=== PATIENT | female | born 1955 | race African-American/Black ===

== ENCOUNTER 2016-04-11 16:52 | Inpatient (IN) | payer MEDICARE, OTHER ==
[~2016-04-11] VITALS: Ht 162.6 cm; Wt 64.0 kg
[~2016-04-11 16:52] MED LIST: AMLO10TA2 PO; CYCL10TA2 PO; ESCI10TA PO; ESTR1.25 PO; FERR325T72 PO; HYDR-2762 PO; HYDR25TA9 PO; INSU100V13 SQ; METF500T4 PO; METO50TA2 PO; METOPRO; OLAN10TA9 PO; PANT40TA5 PO; SERT50TA8 PO; SIMV10TA3 PO; TRAZ50TA15 PO; glipizide; meloxicam; simvastatin; tizanidine; xanax
[2016-04-11] MEDS ORDERED: IV NORMAL SALINE 1000ML BAG 1,000 ML IV ONE ×2 (18:00→19:45)
[2016-04-11] MEDS ORDERED: ONDANSETRON PF 4 MG/2 ML VIAL. IV ONE (18:00)
[2016-04-11] MEDS: HYDROMORPHONE 2 MG/ML VIAL. IV PRN ×2 (18:09→21:50)
[2016-04-11 18:19] LABS: BASO # 0.1 x10^3/uL (0.0-0.2); BASO % 1 % (0-3); EOS % 0 % (0-3); HEMATOCRIT 38.2 % (36.0-47.0); HEMOGLOBIN 12.1 g/dL (12.0-15.5); LYMPH # 1.6 x10^3/uL (1.0-4.8); LYMPH % 18 % (24-48); MEAN CORPUSCULAR HEMOGLOBIN 28 pg (25-35); MEAN CORPUSCULAR HGB CONC 32 g/dL (31-37); MEAN CORPUSCULAR VOLUME 89 fL (79-100); MONO % 5 % (0-9); NEUT % 75 % (31-73); PLATELET COUNT 469 x10^3/uL (140-400); RED BLOOD COUNT 4.31 x10^6/uL (3.50-5.40); RED CELL DISTRIBUTION WIDTH 16.5 % (11.5-14.5); WHITE BLOOD COUNT 8.9 x10^3/uL (4.0-11.0)
[2016-04-11 19:03] LABS: ALBUMIN 4.6 g/dL (3.4-5.0); CALCIUM 10.7 mg/dL (8.5-10.1); DIRECT BILIRUBIN 0.1 mg/dL (0.0-0.2); GFR 68.4; TOTAL BILIRUBIN 0.7 mg/dL (0.2-1.0); TOTAL PROTEIN 9.2 g/dL (6.4-8.2)
[2016-04-11 19:12] LABS: BILIRUBIN,URINE NEGATIVE (NEG); GLUCOSE,URINE NEGATIVE (NEG); NITRITE,URINE NEGATIVE (NEG); PH,URINE 5.5; UROBILINOGEN,URINE 0.2 mg/dL (0.2 mg/dL)
[2016-04-11] MEDS ORDERED: IOHEXOL 300 MG/ML 75 ML VIAL IV ONE (19:30)
[2016-04-11] MEDS ORDERED: CONTRAST GIVEN MC PRN (19:30)
[2016-04-11 19:34] LABS: INR 1.1 (0.8-1.1); PROTHROMBIN TIME PATIENT 13.8 SEC (11.7-14.0)
[2016-04-11 19:52] LABS: BACTERIA,URINE FEW /HPF (0-FEW); PROTEIN,URINE NEGATIVE (NEG-TRACE); RBC,URINE OCC /HPF (0-2); SQUAMOUS EPITHELIAL CELL,UR FEW /LPF; WBC,URINE OCC /HPF (0-4)
--- NOTE | 2016-04-11 20:49 | RAD ---
PQRS STATEMENT One or more of the following individualized dose reduction techniques were utilized for this study: 1.Automated exposure control. 2.Adjustment of the mA and/orkVaccording to patient size. 3.Use of iterative reconstruction technique. Indication:ABD PAIN WITH VOMITING BLOOD
OMNI 300 75 ML
Reason: abdominal pain with vomiting / Spl. Instructions: / History: Technique: multiple contiguous axial images were obtained through the abdomen and pelvis after intravenous administration of iodinated contrast. Coronal and sagittal reformations were created. Findings: The lung bases are clear. The heart size is normal. The liver is enlarged and demonstrates low attenuation compatible with diffuse fatty infiltration. The gallbladder is surgically absent. The pancreas is unremarkable. The spleen and adrenal glands are within normal limits. The kidneys demonstrate no hydronephrosis or mass. The abdominal aorta is normal in caliber. There is no ascites or adenopathy. The appendix is not identified but there is no pericecal inflammatory mass to suggest acute appendicitis. The bowel loops are normal in caliber. The urinary bladder is within normal limits. No destructive osseous lesion is identified. Impression: - No ascites or inflammatory mass. - Nonvisualization of the appendix. - Hepatomegaly with diffuse fatty infiltration of the liver. Electronically signed by: Aries Song (Apr 11, 2016 20:47:47)
--- NOTE | 2016-04-11 21:01 | PHYS DOC ---
Past Medical History Past Medical History: Diabetes-Type II, Hypertension, Other Additional Past Medical Histor: esophageal varices Past Surgical History: Other Additional Past Surgical Histo: L KNEE; esophageal varices hernando Alcohol Use: Occasionally Drug Use: None Adult General Chief Complaint Chief Complaint: HEMATEMESIS/VOMITING BLOOD HPI HPI 60-year-old female presenting the emergency department today with hematemesis and epigastric abdominal pain her pain is sharp nonradiating intermittent and associated with nausea vomiting and blood in her vomit. She reports having history of varices which have been stapled in the past. Review of systems is negative for chest pain shortness of breath fevers or chills. All other review of systems is negative unless otherwise noted in history of present illness. Review of Systems Review of Systems SEE ABOVE. Current Medications Current Medications Current Medications Medications (Trade) Dose Ordered Sig/Jose Start Time Stop Time Status Last Admin Dose Admin Hydromorphone HCl (Dilaudid) 0.5 mg PRN Q1HR PRN 04/11/16 18:00 04/11/16 18:09 0.5 MG Info (Do NOT chart on this entry -- for MONITORING) 1 each PRN DAILY PRN 04/11/16 19:30 04/13/16 19:29 Iohexol (Omnipaque 300 Mg/ml) 75 ml 1X ONCE 04/11/16 19:30 04/11/16 19:31 DC 04/11/16 19:42 75 ML Morphine Sulfate 2 mg 2 mg PRN Q2HR PRN 04/11/16 19:45 04/12/16 19:44 Ondansetron HCl (Zofran) 4 mg PRN Q8HRS PRN 04/11/16 19:45 04/12/16 19:44 Sodium Chloride (Iv Sodium Chloride 0.9% 1000ml Bag) 1,000 ml @ 1,000 mls/hr 1X ONCE 04/11/16 19:45 04/11/16 20:44 DC Allergies Allergies Allergies Coded Allergies Type Severity Reaction Last Updated Verified No Known Drug Allergies 02/13/13 No Physical Exam Physical Exam Constitutional: Well developed, well nourished, no acute distress, non-toxic appearance. Patient is actively vomiting in the emergency department without blood in the vomitus currently. HENT: Normocephalic, atraumatic, bilateral external ears normal, oropharynx moist, no oral exudates, nose normal. [] Eyes: PERRLA, EOMI, conjunctiva normal, no discharge. Neck: Normal range of motion, no tenderness, supple, no stridor. [] Cardiovascular:Heart rate regular rhythm, no murmur Lungs & Thorax: Bilateral breath sounds clear to auscultation [] Abdomen: Mildly tender abdomen in the epigastrium. Equivocal Lucero sign. Negative McBurney's point. No rebound tenderness or guarding present. Skin: Warm, dry, no erythema, no rash. Back: No tenderness, no CVA tenderness. [] Extremities: No tenderness, no cyanosis, no clubbing, ROM intact, no edema. Neurologic: Alert and oriented X 3, normal motor function, normal sensory function, no focal deficits noted. [] Psychologic: Affect normal, judgement normal, mood normal. [] Current Patient Data Vital Signs Vital Signs Date Time Temp Pulse Resp B/P Pulse Ox O2 Delivery O2 Flow Rate FiO2 04/11/16 18:30 116 139/78 94 Room Air 04/11/16 18:09 22 04/11/16 17:07 98.6 98.6 Lab Values Laboratory Tests Test 04/11/16 17:40 04/11/16 18:36 04/11/16 18:40 04/11/16 18:55 White Blood Count 8.9x10^3/uL (4.0-11.0) Red Blood Count 4.31x10^6/uL (3.50-5.40) Hemoglobin 12.1g/dL (12.0-15.5) Hematocrit 38.2% (36.0-47.0) Mean Corpuscular Volume 89fL (79-100) Mean Corpuscular Hemoglobin 28pg (25-35) Mean Corpuscular Hemoglobin Concent 32g/dL (31-37) Red Cell Distribution Width 16.5% (11.5-14.5) H Platelet Count 469x10^3/uL (140-400) H Neutrophils (%) (Auto) 75% (31-73) H Lymphocytes (%) (Auto) 18% (24-48) L Monocytes (%) (Auto) 5% (0-9) Eosinophils (%) (Auto) 0% (0-3) Basophils (%) (Auto) 1% (0-3) Neutrophils # (Auto) 6.7x10^3uL (1.8-7.7) Lymphocytes # (Auto) 1.6x10^3/uL (1.0-4.8) Monocytes # (Auto) 0.5x10^3/uL (0.0-1.1) Eosinophils # (Auto) 0.0x10^3/uL (0.0-0.7) Basophils # (Auto) 0.1x10^3/uL (0.0-0.2) Sodium Level 138mmol/L (136-145) Potassium Level 4.0mmol/L (3.5-5.1) Chloride Level 94mmol/L (98-107) L Carbon Dioxide Level 12mmol/L (21-32) L Anion Gap 32 (6-14) H Blood Urea Nitrogen 16mg/dL (7-20) Creatinine 1.0mg/dL (0.6-1.0) Estimated GFR (Cockcroft-Gault) 68.4 Glucose Level 126mg/dL (70-99) H Calcium Level 10.7mg/dL (8.5-10.1) H Total Bilirubin 0.7mg/dL (0.2-1.0) Direct Bilirubin 0.1mg/dL (0.0-0.2) Aspartate Amino Transferase (AST) 89U/L (15-37) H Alanine Aminotransferase (ALT) 78U/L (14-59) H Alkaline Phosphatase 138U/L (46-116) H Troponin I Quantitative < 0.017ng/mL (0.000-0.055) TI-Pon-Z-Type Natriuretic Peptide 38pg/mL (0-124) Total Protein 9.2g/dL (6.4-8.2) H Albumin 4.6g/dL (3.4-5.0) Lipase 228U/L (73-393) Prothrombin Time 13.8SEC (11.7-14.0) Prothrombin Time INR 1.1 (0.8-1.1) PTT 26SEC (24-38) Lactic Acid Level 4.6mmol/L (0.4-2.0) *H Urine Collection Type Unknown Urine Color Yellow Urine Clarity Clear Urine pH 5.5 Urine Specific [place] 1.015 Urine Protein Negativemg/dL (NEG-TRACE) Urine Glucose (UA) Negativemg/dL (NEG) Urine Ketones (Stick) >=80mg/dL (NEG) Urine Blood Small (NEG) Urine Nitrite Negative (NEG) Urine Bilirubin Negative (NEG) Urine Urobilinogen Dipstick 0.2mg/dL (0.2 mg/dL) Urine Leukocyte Esterase Negative (NEG) Urine RBC Occ/HPF (0-2) Urine WBC Occ/HPF (0-4) Urine Squamous Epithelial Cells Few/LPF Urine Bacteria Few/HPF (0-FEW) Urine Mucus Slight/LPF Laboratory Tests 04/11/16 17:40 Laboratory Tests 04/11/16 17:40 EKG EKG [] EKG shows sinus tachycardia with a leftward axis. ST segments congruent. Not consistent with ACS. Radiology/Procedures Radiology/Procedures [] Chest x-ray shows no acute obvious infiltrate or pneumothorax present. Course & Med Decision Making Course & Med Decision Making Pertinent Labs and Imaging studies reviewed. (See chart for details) [] 60-year-old female with a history of esophageal varices presents emergency department today with nausea vomiting and hematemesis. On evaluation the patient had tachycardia afebrile satting well with mild hypertension. IV line established along with IV fluids pain and nausea medications administered. Type and screen obtained. Blood work sent which showed normal CBC. Hemoglobin 12.1 currently. Coagulation within normal limits. Urinalysis not suggestive of infection. Mild ketosis in urine. Chemistry panel showed anion gap acidosis from lactic acidosis which was significantly elevated at 4.6. Troponin negative. Lipase within the reference range of normal. CT the abdomen and pelvis was obtained which showed no acute pathology. I discussed the case with Dr. Blunt at 2004 given the patient's lactic acidosis and hematemesis considering the diagnosis of mesenteric ischemia. Also I placed a consult into our GI doctors given the patient's history of esophageal varices. The patient was then admitted to our hospital for further evaluation workup and care. Repeat lactic acid ordered. Because the patient's active hematemesis with a history of varices in the context of a strong lactic acidosis the patient was transfused 1 unit of blood. Dragon Disclaimer Dragon Disclaimer This electronic medical record was generated, in whole or in part, using a voice recognition dictation system. Departure Departure Impression: Primary Impression: Hematemesis Additional Impressions: Lactic acidosis Tachycardia Hypovolemia Disposition: ADMITTED INPATIENT Admitting Physician: Charbel Doran Condition: STABLE Referrals: UNKNOWN PCP NAME (PCP) Problem Qualifiers TANK ESTEVEZ MD Apr 11, 2016 21:01
[2016-04-11] MEDS ORDERED: CEFTRIAXONE 1GM IVPB FOR OMNI 50 ML IV ONE (21:30)
[2016-04-11] MEDS ORDERED: PANTOPRAZOLE SODIUM IV 80 MG in IV NORMAL SALINE 100ML 100 ML IV ONE (22:00)
[2016-04-12] VITALS (20 sets, daily range): BP systolic 109–149; BP diastolic 55–87
--- NOTE | 2016-04-12 00:12 | HP ---
ADMIT DATE: 04/12/2016 CHIEF COMPLAINT: Abdominal pain and hematemesis. HISTORY OF PRESENT ILLNESS: The patient is a pleasant 60-year-old female who I believe has liver issues from drinking. She states she had an EGD in the recent past and had to clear up some esophageal varices. Once again, she presents with hematemesis. She has associated pain in her abdomen. Her lactic acid level is high. I discussed the case with the ER physician. We are going to admit the patient and consult GI and General Surgery. PAST MEDICAL HISTORY: Probable esophageal varices, diabetes, hypertension, left knee surgery, alcohol issues. ALLERGIES: None. FAMILY HISTORY: Hypertension. SOCIAL HISTORY: She states she is trying to quit drinking the vodka. MEDICATIONS: Reviewed, please refer to the MRAD. REVIEW OF SYSTEMS: GENERAL: No history of weight change, weakness or fevers. SKIN: No bruising, hair changes or rashes. EYES: No blurred, double or loss of vision. NOSE AND THROAT: No history of nosebleeds, hoarseness or sore throat. HEART: No history of palpitations, chest pain or shortness of breath on exertion. LUNGS: Denies cough, hemoptysis, wheezing or shortness of breath. GASTROINTESTINAL: She complains of abdominal pain and hematemesis. GENITOURINARY: No history of frequency, urgency, hesitancy or nocturia. NEUROLOGIC: Denies history of numbness, tingling, tremor or weakness. PSYCHIATRIC: No history of panic, anxiety or depression. ENDOCRINE: No history of heat or cold intolerance, polyuria or polydipsia. EXTREMITIES: Denies muscle weakness, joint pain, pain on walking or stiffness. PHYSICAL EXAMINATION: VITAL SIGNS: Temperature afebrile, pulse 78, respirations 18, blood pressure 141/82. She had a pulse to 100. GENERAL: She is alert, cooperative, anxious. HEART: Normal S1, S2, tachycardic at times. LUNGS: Clear. ABDOMEN: Soft. Decreased bowel sounds, tender in the epigastrium. EXTREMITIES: No edema. SKIN: No rashes. PSYCHIATRIC: She is anxious. VASCULAR: Good capillary refill. ENDOCRINE: No thyromegaly. LYMPHATICS: No cervical nodes. HEMATOPOIETIC: No bruising. LABORATORY DATA: White count 8, hemoglobin 12, platelets 469. Electrolytes: Sodium 138, potassium 4, chloride 94, bicarbonate 12, BUN 16, creatinine 1, glucose 126, lactic acid 4.6. Troponin 0. Liver function tests were elevated with an AST of 89, ALT of 78, alkaline phosphatase 130. ASSESSMENT AND PLAN: Abdominal pain, hematemesis, suspect possible recurrent esophageal varices. The patient is being admitted, we will consult Dr. Keith and General Surgery. IV proton pump inhibitors. Frequent labs. PROGNOSIS: Guarded. CHRISTA TORRES DO DR: RUBIO/isaura JOB#: [id number] / [id number]
[2016-04-12] MEDS: IV NORMAL SALINE 1000ML BAG 1,000 ML IV SCH ×2 (01:19→14:20)
[2016-04-12] MEDS: HYDROMORPHONE 2 MG/ML VIAL. IV PRN (01:20)
[2016-04-12] MEDS: ONDANSETRON PF 4 MG/2 ML VIAL. IV PRN ×2 (01:20→10:17)
[2016-04-12] MEDS: MORPHINE SULFATE 2 MG/ML DISP.SYRIN. IV PRN ×4 (05:04→18:17)
[2016-04-12 05:13] LABS: BASO % 1 % (0-3); EOS % 0 % (0-3); HEMATOCRIT 29.5 % (36.0-47.0); HEMOGLOBIN 9.6 g/dL (12.0-15.5); LYMPH # 1.5 x10^3/uL (1.0-4.8); LYMPH % 20 % (24-48); MEAN CORPUSCULAR HEMOGLOBIN 28 pg (25-35); MEAN CORPUSCULAR HGB CONC 32 g/dL (31-37); MEAN CORPUSCULAR VOLUME 88 fL (79-100); MONO % 12 % (0-9); NEUT % 68 % (31-73); PLATELET COUNT 360 x10^3/uL (140-400); RED BLOOD COUNT 3.37 x10^6/uL (3.50-5.40); RED CELL DISTRIBUTION WIDTH 16.2 % (11.5-14.5); WHITE BLOOD COUNT 7.9 x10^3/uL (4.0-11.0)
[2016-04-12 05:38] LABS: CREATININE 0.9 mg/dL (0.6-1.0); GFR 77.3; POTASSIUM 3.8 mmol/L (3.5-5.1)
--- NOTE | 2016-04-12 06:38 | EKG ---
[facility] [address] [place] [address] Test Date: 2016-04-11 Test Time: 17:15:55 Pat Name: KRISTINE MEJIA Department: Room: 103 1 Gender: F Check Grader: BI : [id number] Requested By: TANK ESTEVEZ Order Number: [id number] Reading MD: Kandace Bloom Measurements Intervals [place] Rate: 114 P: -96 SD: 96 QRS: -2 QRSD: 84 T: 52 QT: 282 QTc: 392 Interpretive Statements SINUS TACHYCARDIA LEFTWARD AXIS OTHERWISE NORMAL ECG RI6.01 No previous ECG available for comparison Electronically Signed On 04-17-2016 14:25:32 [employer] by Kandace Bloom
[2016-04-12] MEDS: PANTOPRAZOLE SODIUM IV 80 MG in IV NORMAL SALINE 100ML 100 ML IV SCH ×2 (08:02→18:00)
--- NOTE | 2016-04-12 08:35 | RAD ---
Indication epigastric abdominal pain with hematemesis for 2 days. History of esophageal varices. A single AP view of the chest was obtained. Comparison is made to an examination 02/27/2016. Slightly tortuous thoracic aorta is noted. The heart and pulmonary vessels are normal. The lungs are clear. There is no pleural fluid or pneumothorax. A significant change when compared to the previous exam is not seen. IMPRESSION: No acute or focal process. No significant change
--- NOTE | 2016-04-12 09:08 | PDOC2 ---
CONSULT Date of Consult Date of Consult DATE: 04/12/16 TIME: 09:02 History of Present Illness Reason for Visit: The patient is a 60 year old female who reported to the ER with abdominal pain and vomiting of blood. She was admitted in 02/2017 due to chest pain and anemia , and found to have a tori pal tear which was clipped. She states that the pain has been there for some time, but worsened over the last 3 days. The pain is most prominent in the upper mid abdomen and does not radiate. She has also been vomiting blood for the last 3 days. She admits to a long history of alcohol use. She states she "has cut down", but has continued to drink and had a significant amount during the SuperBowl. Past Medical History Past Medical History diabetes, hypertension, tori pal tear Past Surgical History Past Surgical History lap mario Social History Social History on disability, denies tobacco use, significant alcohol use Current Problem List Problem List Problems Medical Problems: (1) Hematemesis Status: Acute (2) Hypovolemia Status: Acute (3) Lactic acidosis Status: Acute (4) Tachycardia Status: Acute Current Medications Current Medications Current Medications Hydromorphone HCl (Dilaudid) 0.5 mg PRN Q1HR PRN IV SEVERE PAIN Last administered on 04/12/16 01:20; Start 04/11/16 at 18:00; Stop 04/12/16 at 01:20; Status DC Ondansetron HCl 4 mg 4 mg 1X ONCE IV Last administered on 04/11/16 18:08; Start 04/11/16 at 18:00; Stop 04/11/16 at 18:01; Status DC Sodium Chloride (Iv Sodium Chloride 0.9% 1000ml Bag) 1,000 ml @ 1,000 mls/hr 1X ONCE IV Last administered on 04/11/16 18:09; Start 04/11/16 at 18:00; Stop 04/11/16 at 18:59; Status DC Iohexol (Omnipaque 300 Mg/ml) 75 ml 1X ONCE IV Last administered on 04/11/16 19:42; Start 04/11/16 at 19:30; Stop 04/11/16 at 19:31; Status DC Info (Do NOT chart on this entry -- for MONITORING) 1 each PRN DAILY PRN MC SEE COMMENTS; Start 04/11/16 at 19:30; Stop 04/13/16 at 19:29 Ondansetron HCl (Zofran) 4 mg PRN Q8HRS PRN IV NAUSEA/VOMITING Last administered on 04/12/16 01:20; Start 04/11/16 at 19:45; Stop 04/12/16 at 19:44 Morphine Sulfate 2 mg 2 mg PRN Q2HR PRN IV PAIN Last administered on 04/12/16 08:09; Start 04/11/16 at 19:45; Stop 04/12/16 at 19:44 Sodium Chloride 1,000 ml @ 1,000 mls/hr 1X ONCE IV Last administered on 20:10; Start 04/11/16 at 19:45; Stop 04/11/16 at 20:44; Status DC Ceftriaxone Sodium 50 ml @ 100 mls/hr 1X ONCE IV Last administered on 22:19; Start 04/11/16 at 21:30; Stop 04/11/16 at 21:59; Status DC Pantoprazole Sodium 80 mg/ Sodium Chloride 100 ml @ 10 mls/hr 1X ONCE IV Last administered on 04/11/16 22:46; Start 04/11/16 at 22:00; Stop 04/12/16 at 07: 59; Status DC Sodium Chloride 1,000 ml @ 75 mls/hr [id number] IV Last administered on 04/12/16 01:19; Start 04/12/16 at 01:00 Pantoprazole Sodium/Sodium Chloride (Protonix Iv/Iv Sodium Chloride 0.9% 100ml) 100 ml @ 10 mls/hr Q10H IV Last administered on 04/12/16 08:02; Start 04/12/16 at 08:00 Active Scripts Active Pantoprazole Sodium 40 Mg Tablet.dr 40 Mg PO DAILYAC Feosol (Ferrous Sulfate) 325 Mg Tablet 325 Mg PO [id number] Escitalopram Oxalate 10 Mg Tablet 1 Tab PO DAILY Metoprolol Tartrate 50 Mg Tablet 1 Tab PO DAILY Sertraline Hcl 50 Mg Tablet 50 Mg PO DAILY Reported Trazodone Hcl 50 Mg Tablet 1 Tab PO QHS Levemir (Insulin Detemir) 100 Unit/1 Ml Vial 17 Unit SQ HS Olanzapine 10 Mg Tablet 10 Mg PO DAILY Metformin Hcl 500 Mg Tablet 1 Tab PO BID Simvastatin 10 Mg Tablet 1 Tab PO QHS Cyclobenzaprine Hcl 10 Mg Tablet 1 Tab PO QHS Hydrocodone-Apap 7.5-325 (Hydrocodone Bit/Acetaminophen) 1 Each Tablet 1 Each PO QID Premarin (Estrogens, Conjugated) 1.25 Mg Tablet 1.25 Mg PO DAILY Allergies Allergies: Coded Allergies: No Known Drug Allergies (Unverified , 02/13/13) ROS General: No: Appetite, Chills, Fatigue, Malaise, Night Sweats, Other PSYCHOLOGICAL ROS: No: Anxiety, Behavioral Disorder, Concentration difficultie , Decreased libido, Depression, Disorientation, Hallucinations, Hostility, Irritablity, Memory difficulties, Mood Swings, Obsessive thoughts, Other, Physical abuse, Sexual abuse, Sleep disturbances, Suicidal ideation Eyes: No Blurry vision, No Decreased vision, No Double vision, No Dry eyes, No Excessive tearing, No Eye Pain, No Itchy Eyes, No Loss of vision, No Other, No Photophobia, No Scotomata, No Uses contacts, No Uses glasses HEENT: No: Epistaxis, Heacaches, Hearing change, Nasal congestion, Nasal discharge, Oral lesions, Other, Sinus pain, Sneezing, Snoring, Sore Throat, Tinnitus, Vertigo, Visual Changes, Vocal changes ALLERGY AND IMMUNOLOGY: No: Hives, Insect Bite Sensitivity, Itchy/Watery Eyes, Nasal Congestion, Other, Post Nasal Drip, Seasonal Allergies Hematological and Lymphatic: No: Bleeding Problems, Blood Clots, Blood Transfusions, Brusing, Night Sweats, Other, Pallor, Swollen Lymph Nodes ENDOCRINE: No: Breast Changes, Galactorrhea, Hair Pattern Changes, Hot Flashes , Malaise/lethargy, Mood Swings, Other, Palpitations, Polydipsia/polyuria, Skin Changes, Temperature Intolerance, Unexpected Weight Changes Respiratory: No: Cough, Hemoptysis, Orthopnea, Other, Pleuritic Pain, SOB with excertion, Shortness of breath, Sputum Changes, Stridor, Tachypnea, Wheezing Cardiovascular: No Chest Pain, No Edema, No Lt Headedness, No Orthopnea, No Other, No Palpitations, No Paroxysmal Noc. Dyspnea Gastrointestinal: Yes Abdominal Pain, Yes Vomiting Genitourinary: No , No , No , No , No , No , No , No Discharge, No Dysuria, No Flank Pain, No Frequency, No Hematuria, No Incontinence, No Other, No Pain, No Retention, No Urgency Musculoskeletal: No Gait Disturbance, No Joint Pain, No Joint Stiffness, No Joint Swelling, No Muscle Pain, No Muscular Weakness, No Other, No Pain In:, No Swelling In: Neurological: No Behavorial Changes, No Bowel/Bladder ControlChng, No Confusion , No Dizziness, No Gait Disturbance, No Headaches, No Impaired Coord/balance, No Memory Loss, No Numbness/Tingling, No Other, No Seizures, No Speech Problems , No Tremors, No Visual Changes, No Weakness Physical Exam General: Alert, Oriented X3 HEENT: Atraumatic Lungs: Clear to auscultation Heart: Regular rate Abdomen: Soft (tender with palpation in upper mid abdomen) Extremities: No clubbing, No cyanosis, No edema Skin: No rashes, No breakdown Neuro: Normal speech Psych/Mental Status: Mental status NL MUSCULOSKELETAL: No deformity, No swelling Vitals VITALS Vital Signs Date Time Temp Pulse Resp B/P Pulse Ox O2 Delivery O2 Flow Rate FiO2 04/12/16 08:09 98 Room Air 04/12/16 08:02 98.3 96 24 138/82 98.3 Labs Labs Laboratory Tests Test 04/11/16 17:40 04/11/16 18:36 04/11/16 18:40 04/11/16 18:55 White Blood Count 8.9x10^3/uL (4.0-11.0) Red Blood Count 4.31x10^6/uL (3.50-5.40) Hemoglobin 12.1g/dL (12.0-15.5) Hematocrit 38.2% (36.0-47.0) Mean Corpuscular Volume 89fL (79-100) Mean Corpuscular Hemoglobin 28pg (25-35) Mean Corpuscular Hemoglobin Concent 32g/dL (31-37) Red Cell Distribution Width 16.5% (11.5-14.5) Platelet Count 469x10^3/uL (140-400) Neutrophils (%) (Auto) 75% (31-73) Lymphocytes (%) (Auto) 18% (24-48) Monocytes (%) (Auto) 5% (0-9) Eosinophils (%) (Auto) 0% (0-3) Basophils (%) (Auto) 1% (0-3) Neutrophils # (Auto) 6.7x10^3uL (1.8-7.7) Lymphocytes # (Auto) 1.6x10^3/uL (1.0-4.8) Monocytes # (Auto) 0.5x10^3/uL (0.0-1.1) Eosinophils # (Auto) 0.0x10^3/uL (0.0-0.7) Basophils # (Auto) 0.1x10^3/uL (0.0-0.2) Sodium Level 138mmol/L (136-145) Potassium Level 4.0mmol/L (3.5-5.1) Chloride Level 94mmol/L (98-107) Carbon Dioxide Level 12mmol/L (21-32) Anion Gap 32 (6-14) Blood Urea Nitrogen 16mg/dL (7-20) Creatinine 1.0mg/dL (0.6-1.0) Estimated GFR (Cockcroft-Gault) 68.4 Glucose Level 126mg/dL (70-99) Calcium Level 10.7mg/dL (8.5-10.1) Total Bilirubin 0.7mg/dL (0.2-1.0) Direct Bilirubin 0.1mg/dL (0.0-0.2) Aspartate Amino Transf (AST/SGOT) 89U/L (15-37) Alanine Aminotransferase (ALT/SGPT) 78U/L (14-59) Alkaline Phosphatase 138U/L (46-116) Troponin I Quantitative < 0.017ng/mL (0.000-0.055) QL-Nxp-A-Type Natriuretic Peptide 38pg/mL (0-124) Total Protein 9.2g/dL (6.4-8.2) Albumin 4.6g/dL (3.4-5.0) Lipase 228U/L (73-393) Prothrombin Time 13.8SEC (11.7-14.0) Prothromb Time International Ratio 1.1 (0.8-1.1) Activated Partial Thromboplast Time 26SEC (24-38) Lactic Acid Level 4.6mmol/L (0.4-2.0) Urine Collection Type Unknown Urine Color Yellow Urine Clarity Clear Urine pH 5.5 Urine Specific [place] 1.015 Urine Protein Negativemg/dL (NEG-TRACE) Urine Glucose (UA) Negativemg/dL (NEG) Urine Ketones (Stick) >=80mg/dL (NEG) Urine Blood Small (NEG) Urine Nitrite Negative (NEG) Urine Bilirubin Negative (NEG) Urine Urobilinogen Dipstick 0.2mg/dL (0.2 mg/dL) Urine Leukocyte Esterase Negative (NEG) Urine RBC Occ/HPF (0-2) Urine WBC Occ/HPF (0-4) Urine Squamous Epithelial Cells Few/LPF Urine Bacteria Few/HPF (0-FEW) Urine Mucus Slight/LPF Test 04/11/16 22:05 04/12/16 04:27 04/12/16 08:01 Lactic Acid Level 1.9mmol/L (0.4-2.0) White Blood Count 7.9x10^3/uL (4.0-11.0) Red Blood Count 3.37x10^6/uL (3.50-5.40) Hemoglobin 9.6g/dL (12.0-15.5) Hematocrit 29.5% (36.0-47.0) Mean Corpuscular Volume 88fL (79-100) Mean Corpuscular Hemoglobin 28pg (25-35) Mean Corpuscular Hemoglobin Concent 32g/dL (31-37) Red Cell Distribution Width 16.2% (11.5-14.5) Platelet Count 360x10^3/uL (140-400) Neutrophils (%) (Auto) 68% (31-73) Lymphocytes (%) (Auto) 20% (24-48) Monocytes (%) (Auto) 12% (0-9) Eosinophils (%) (Auto) 0% (0-3) Basophils (%) (Auto) 1% (0-3) Neutrophils # (Auto) 5.3x10^3uL (1.8-7.7) Lymphocytes # (Auto) 1.5x10^3/uL (1.0-4.8) Monocytes # (Auto) 1.0x10^3/uL (0.0-1.1) Eosinophils # (Auto) 0.0x10^3/uL (0.0-0.7) Basophils # (Auto) 0.0x10^3/uL (0.0-0.2) Sodium Level 135mmol/L (136-145) Potassium Level 3.8mmol/L (3.5-5.1) Chloride Level 99mmol/L (98-107) Carbon Dioxide Level 22mmol/L (21-32) Anion Gap 14 (6-14) Blood Urea Nitrogen 11mg/dL (7-20) Creatinine 0.9mg/dL (0.6-1.0) Estimated GFR (Cockcroft-Gault) 77.3 Glucose Level 141mg/dL (70-99) Calcium Level 9.0mg/dL (8.5-10.1) Glucose (Fingerstick) 109mg/dL (70-99) Laboratory Tests Test 04/11/16 17:40 04/11/16 18:36 04/11/16 18:40 04/11/16 18:55 White Blood Count 8.9x10^3/uL (4.0-11.0) Red Blood Count 4.31x10^6/uL (3.50-5.40) Hemoglobin 12.1g/dL (12.0-15.5) Hematocrit 38.2% (36.0-47.0) Mean Corpuscular Volume 89fL (79-100) Mean Corpuscular Hemoglobin 28pg (25-35) Mean Corpuscular Hemoglobin Concent 32g/dL (31-37) Red Cell Distribution Width 16.5% (11.5-14.5) Platelet Count 469x10^3/uL (140-400) Neutrophils (%) (Auto) 75% (31-73) Lymphocytes (%) (Auto) 18% (24-48) Monocytes (%) (Auto) 5% (0-9) Eosinophils (%) (Auto) 0% (0-3) Basophils (%) (Auto) 1% (0-3) Neutrophils # (Auto) 6.7x10^3uL (1.8-7.7) Lymphocytes # (Auto) 1.6x10^3/uL (1.0-4.8) Monocytes # (Auto) 0.5x10^3/uL (0.0-1.1) Eosinophils # (Auto) 0.0x10^3/uL (0.0-0.7) Basophils # (Auto) 0.1x10^3/uL (0.0-0.2) Sodium Level 138mmol/L (136-145) Potassium Level 4.0mmol/L (3.5-5.1) Chloride Level 94mmol/L (98-107) Carbon Dioxide Level 12mmol/L (21-32) Anion Gap 32 (6-14) Blood Urea Nitrogen 16mg/dL (7-20) Creatinine 1.0mg/dL (0.6-1.0) Estimated GFR (Cockcroft-Gault) 68.4 Glucose Level 126mg/dL (70-99) Calcium Level 10.7mg/dL (8.5-10.1) Total Bilirubin 0.7mg/dL (0.2-1.0) Direct Bilirubin 0.1mg/dL (0.0-0.2) Aspartate Amino Transf (AST/SGOT) 89U/L (15-37) Alanine Aminotransferase (ALT/SGPT) 78U/L (14-59) Alkaline Phosphatase 138U/L (46-116) Troponin I Quantitative < 0.017ng/mL (0.000-0.055) CA-Ewo-I-Type Natriuretic Peptide 38pg/mL (0-124) Total Protein 9.2g/dL (6.4-8.2) Albumin 4.6g/dL (3.4-5.0) Lipase 228U/L (73-393) Prothrombin Time 13.8SEC (11.7-14.0) Prothromb Time International Ratio 1.1 (0.8-1.1) Activated Partial Thromboplast Time 26SEC (24-38) Lactic Acid Level 4.6mmol/L (0.4-2.0) Urine Collection Type Unknown Urine Color Yellow Urine Clarity Clear Urine pH 5.5 Urine Specific [place] 1.015 Urine Protein Negativemg/dL (NEG-TRACE) Urine Glucose (UA) Negativemg/dL (NEG) Urine Ketones (Stick) >=80mg/dL (NEG) Urine Blood Small (NEG) Urine Nitrite Negative (NEG) Urine Bilirubin Negative (NEG) Urine Urobilinogen Dipstick 0.2mg/dL (0.2 mg/dL) Urine Leukocyte Esterase Negative (NEG) Urine RBC Occ/HPF (0-2) Urine WBC Occ/HPF (0-4) Urine Squamous Epithelial Cells Few/LPF Urine Bacteria Few/HPF (0-FEW) Urine Mucus Slight/LPF Test 04/11/16 22:05 04/12/16 04:27 04/12/16 08:01 Lactic Acid Level 1.9mmol/L (0.4-2.0) White Blood Count 7.9x10^3/uL (4.0-11.0) Red Blood Count 3.37x10^6/uL (3.50-5.40) Hemoglobin 9.6g/dL (12.0-15.5) Hematocrit 29.5% (36.0-47.0) Mean Corpuscular Volume 88fL (79-100) Mean Corpuscular Hemoglobin 28pg (25-35) Mean Corpuscular Hemoglobin Concent 32g/dL (31-37) Red Cell Distribution Width 16.2% (11.5-14.5) Platelet Count 360x10^3/uL (140-400) Neutrophils (%) (Auto) 68% (31-73) Lymphocytes (%) (Auto) 20% (24-48) Monocytes (%) (Auto) 12% (0-9) Eosinophils (%) (Auto) 0% (0-3) Basophils (%) (Auto) 1% (0-3) Neutrophils # (Auto) 5.3x10^3uL (1.8-7.7) Lymphocytes # (Auto) 1.5x10^3/uL (1.0-4.8) Monocytes # (Auto) 1.0x10^3/uL (0.0-1.1) Eosinophils # (Auto) 0.0x10^3/uL (0.0-0.7) Basophils # (Auto) 0.0x10^3/uL (0.0-0.2) Sodium Level 135mmol/L (136-145) Potassium Level 3.8mmol/L (3.5-5.1) Chloride Level 99mmol/L (98-107) Carbon Dioxide Level 22mmol/L (21-32) Anion Gap 14 (6-14) Blood Urea Nitrogen 11mg/dL (7-20) Creatinine 0.9mg/dL (0.6-1.0) Estimated GFR (Cockcroft-Gault) 77.3 Glucose Level 141mg/dL (70-99) Calcium Level 9.0mg/dL (8.5-10.1) Glucose (Fingerstick) 109mg/dL (70-99) Images Images CT abdomen/pelvis: negative for acute abnormality, gallbladder absent Assessment/Plan Assessment/Plan Abdominal pain, hematemesis, recent history of tori pal tear. Suspect ongoing bleeding; recommend GI consult; no indication for surgical intervention. ANA WILL MD Apr 12, 2016 09:08
--- NOTE | 2016-04-12 09:13 | PDOC2 ---
GI CONSULT Reason For Consult: Hematemesis HPI: HPI: 60 y/o AA female previously evaluated by Dr. Keith in 02/2016 for melena and anemia. EGD on 02/27/16 showed Janett-Oro tear that was clipped. Note her chart lists h/o esophageal varices which I don't believe is correct. Additional h/o alcohol abuse; she has cut back to consuming 1/2 pint or a few beers every third day. On this occasion, she says she developed an "upset stomach" on 04/10/16 and began vomiting blood. Later that night, she drank during the Super Bowl. Hematemesis (bright red blood) continue yesterday prompting ER evaluation. She has diffuse soreness in her abdomen and also has not been eating very well. Denies melena or hematochezia. Note on last discharge it was recommended she follow-up for outpatient colonoscopy for anemia (Hgb 7s-8s mostly); her last colonoscopy was ~4 years ago @ [facility] and was reportedly normal. No NSAID use, GERD, or dysphagia. Labs showed Hgb 12/ (now 9.6), normal plt count, normal INR< normal bilirubin, AST 89, ALT 78, Alk Phos 138, lactic acid 4.6 (now 1.9). She is NPO on PPI drip ; per RN notes, she spit up overnight w/ a tinge of red blood. PMH: PMH: DM, HTN, HLD, left knee surgery, left shoulder surgery, jaw surgery, cholecystectomy FH: Family History: Cancer (breast) Social History: Smoke: No ALCOHOL: heavy (has cut back to 1/2 pint or a a few beers every third day) Drugs: None ROS: GEN: Denies fevers, chills, sweats HEENT: Denies blurred vision, sore throat CV: Denies chest pain RESP: Denies shortness of air, cough GI: Per HPI : Denies hematuria, dysuria ENDO: Denies weight changes NEURO: Denies confusion, dizziness MSK: +left breast pain SKIN: Denies jaundice, pruritus VItals: Vitals: Vital Signs Date Time Temp Pulse Resp B/P Pulse Ox O2 Delivery O2 Flow Rate FiO2 04/12/16 08:09 98 Room Air 04/12/16 08:02 98.3 96 24 138/82 98.3 Labs: Labs: Laboratory Tests Test 04/11/16 17:40 04/11/16 18:36 04/11/16 18:40 04/11/16 18:55 White Blood Count 8.9x10^3/uL (4.0-11.0) Red Blood Count 4.31x10^6/uL (3.50-5.40) Hemoglobin 12.1g/dL (12.0-15.5) Hematocrit 38.2% (36.0-47.0) Mean Corpuscular Volume 89fL (79-100) Mean Corpuscular Hemoglobin 28pg (25-35) Mean Corpuscular Hemoglobin Concent 32g/dL (31-37) Red Cell Distribution Width 16.5% (11.5-14.5) Platelet Count 469x10^3/uL (140-400) Neutrophils (%) (Auto) 75% (31-73) Lymphocytes (%) (Auto) 18% (24-48) Monocytes (%) (Auto) 5% (0-9) Eosinophils (%) (Auto) 0% (0-3) Basophils (%) (Auto) 1% (0-3) Neutrophils # (Auto) 6.7x10^3uL (1.8-7.7) Lymphocytes # (Auto) 1.6x10^3/uL (1.0-4.8) Monocytes # (Auto) 0.5x10^3/uL (0.0-1.1) Eosinophils # (Auto) 0.0x10^3/uL (0.0-0.7) Basophils # (Auto) 0.1x10^3/uL (0.0-0.2) Sodium Level 138mmol/L (136-145) Potassium Level 4.0mmol/L (3.5-5.1) Chloride Level 94mmol/L (98-107) Carbon Dioxide Level 12mmol/L (21-32) Anion Gap 32 (6-14) Blood Urea Nitrogen 16mg/dL (7-20) Creatinine 1.0mg/dL (0.6-1.0) Estimated GFR (Cockcroft-Gault) 68.4 Glucose Level 126mg/dL (70-99) Calcium Level 10.7mg/dL (8.5-10.1) Total Bilirubin 0.7mg/dL (0.2-1.0) Direct Bilirubin 0.1mg/dL (0.0-0.2) Aspartate Amino Transf (AST/SGOT) 89U/L (15-37) Alanine Aminotransferase (ALT/SGPT) 78U/L (14-59) Alkaline Phosphatase 138U/L (46-116) Troponin I Quantitative < 0.017ng/mL (0.000-0.055) QV-Ryf-F-Type Natriuretic Peptide 38pg/mL (0-124) Total Protein 9.2g/dL (6.4-8.2) Albumin 4.6g/dL (3.4-5.0) Lipase 228U/L (73-393) Prothrombin Time 13.8SEC (11.7-14.0) Prothromb Time International Ratio 1.1 (0.8-1.1) Activated Partial Thromboplast Time 26SEC (24-38) Lactic Acid Level 4.6mmol/L (0.4-2.0) Urine Collection Type Unknown Urine Color Yellow Urine Clarity Clear Urine pH 5.5 Urine Specific [place] 1.015 Urine Protein Negativemg/dL (NEG-TRACE) Urine Glucose (UA) Negativemg/dL (NEG) Urine Ketones (Stick) >=80mg/dL (NEG) Urine Blood Small (NEG) Urine Nitrite Negative (NEG) Urine Bilirubin Negative (NEG) Urine Urobilinogen Dipstick 0.2mg/dL (0.2 mg/dL) Urine Leukocyte Esterase Negative (NEG) Urine RBC Occ/HPF (0-2) Urine WBC Occ/HPF (0-4) Urine Squamous Epithelial Cells Few/LPF Urine Bacteria Few/HPF (0-FEW) Urine Mucus Slight/LPF Test 04/11/16 22:05 04/12/16 04:27 04/12/16 08:01 Lactic Acid Level 1.9mmol/L (0.4-2.0) White Blood Count 7.9x10^3/uL (4.0-11.0) Red Blood Count 3.37x10^6/uL (3.50-5.40) Hemoglobin 9.6g/dL (12.0-15.5) Hematocrit 29.5% (36.0-47.0) Mean Corpuscular Volume 88fL (79-100) Mean Corpuscular Hemoglobin 28pg (25-35) Mean Corpuscular Hemoglobin Concent 32g/dL (31-37) Red Cell Distribution Width 16.2% (11.5-14.5) Platelet Count 360x10^3/uL (140-400) Neutrophils (%) (Auto) 68% (31-73) Lymphocytes (%) (Auto) 20% (24-48) Monocytes (%) (Auto) 12% (0-9) Eosinophils (%) (Auto) 0% (0-3) Basophils (%) (Auto) 1% (0-3) Neutrophils # (Auto) 5.3x10^3uL (1.8-7.7) Lymphocytes # (Auto) 1.5x10^3/uL (1.0-4.8) Monocytes # (Auto) 1.0x10^3/uL (0.0-1.1) Eosinophils # (Auto) 0.0x10^3/uL (0.0-0.7) Basophils # (Auto) 0.0x10^3/uL (0.0-0.2) Sodium Level 135mmol/L (136-145) Potassium Level 3.8mmol/L (3.5-5.1) Chloride Level 99mmol/L (98-107) Carbon Dioxide Level 22mmol/L (21-32) Anion Gap 14 (6-14) Blood Urea Nitrogen 11mg/dL (7-20) Creatinine 0.9mg/dL (0.6-1.0) Estimated GFR (Cockcroft-Gault) 77.3 Glucose Level 141mg/dL (70-99) Calcium Level 9.0mg/dL (8.5-10.1) Glucose (Fingerstick) 109mg/dL (70-99) Allergies: Coded Allergies: No Known Drug Allergies (Unverified , 02/13/13) Medications: Current Medications Medications (Trade) Dose Ordered Sig/Jose Route PRN Reason Start Time Stop Time Status Last Admin Dose Admin Hydromorphone HCl (Dilaudid) 0.5 mg PRN Q1HR PRN IV SEVERE PAIN 04/11/16 18:00 04/12/16 01:20 DC 04/12/16 01:20 Ondansetron HCl 4 mg 4 mg 1X ONCE IV 04/11/16 18:00 04/11/16 18:01 DC 04/11/16 18:08 Sodium Chloride (Iv Sodium Chloride 0.9% 1000ml Bag) 1,000 ml @ 1,000 mls/hr 1X ONCE IV 04/11/16 18:00 04/11/16 18:59 DC 04/11/16 18:09 Iohexol (Omnipaque 300 Mg/ml) 75 ml 1X ONCE IV 04/11/16 19:30 04/11/16 19:31 DC 04/11/16 19:42 Ondansetron HCl (Zofran) 4 mg PRN Q8HRS PRN IV NAUSEA/VOMITING 04/11/16 19:45 04/12/16 19:44 04/12/16 01:20 Morphine Sulfate 2 mg 2 mg PRN Q2HR PRN IV PAIN 04/11/16 19:45 04/12/16 19:44 04/12/16 08:09 Sodium Chloride 1,000 ml @ 1,000 mls/hr 1X ONCE IV 04/11/16 19:45 04/11/16 20:44 DC 04/11/16 20:10 Ceftriaxone Sodium 50 ml @ 100 mls/hr 1X ONCE IV 04/11/16 21:30 04/11/16 21:59 DC 04/11/16 22:19 Pantoprazole Sodium 80 mg/ Sodium Chloride 100 ml @ 10 mls/hr 1X ONCE IV 04/11/16 22:00 04/12/16 07:59 DC 04/11/16 22:46 Sodium Chloride 1,000 ml @ 75 mls/hr [id number] IV 04/12/16 01:00 04/12/16 01:19 Pantoprazole Sodium/Sodium Chloride (Protonix Iv/Iv Sodium Chloride 0.9% 100ml) 100 ml @ 10 mls/hr Q10H IV 04/12/16 08:00 04/12/16 08:02 Imaging: Imaging: CT A/P w/ IV contrast 04/11/16 Impression: - No ascites or inflammatory mass. - Nonvisualization of the appendix. - Hepatomegaly with diffuse fatty infiltration of the liver. CXR 04/11/16 IMPRESSION: No acute or focal process. No significant change PE: GEN: NAD, holding emesis basin HEENT: Atraumatic, PERRL LUNGS: CTAB anteriorly HEART: RRR ABD: BS+, diffusely tender to light palpation, particularly in epigastrium EXTREMITY: No edema SKIN: No rashes, no jaundice NEURO/PSYCH: A & O 3, speaks slowly and quietly A/P: A/P: Hematemesis - improving -onset 04/10/16 Abdominal pain - diffuse Anorexia Anemia -noted last admission; Hgb 9.6 this morning H/o M-W tear -s/p clip 02/27/16 H/o alcohol abuse CRC screen -reports normal colonoscopy ~4 years ago -- Keep NPO on PPI drip for EGD this afternoon. STARR CASILLAS Apr 12, 2016 09:13
--- NOTE | 2016-04-12 10:28 | PDOC ---
PROGRESS NOTES Chief Complaint Chief Complaint Hematemesis Abdominal pain Alcohol abuse Anemia H/o M-W tears/p clip 02/27/16 Plan EGD today hemogram to monitor NPO IVF IV Protonix. alcohol withdrawal prevention - iv ativan, mulitivitamins Pain control with iv morphin History of Present Illness History of Present Illness no bleeding no fever no chills. doing better. Vitals Vitals Vital Signs Date Time Temp Pulse Resp B/P Pulse Ox O2 Delivery O2 Flow Rate FiO2 04/12/16 10:17 99 26 146/84 100 Room Air 04/12/16 08:02 98.3 98.3 Physical Exam General: Alert, Oriented X3 Heart: Regular rate, Normal S1, Normal S2 Lungs: Clear, Wheezing Abdomen: Soft Extremities: No clubbing, No cyanosis, No edema Skin: No rashes, No breakdown Labs LABS Laboratory Tests Test 04/11/16 17:40 04/11/16 18:36 04/11/16 18:40 04/11/16 18:55 White Blood Count 8.9x10^3/uL (4.0-11.0) Red Blood Count 4.31x10^6/uL (3.50-5.40) Hemoglobin 12.1g/dL (12.0-15.5) Hematocrit 38.2% (36.0-47.0) Mean Corpuscular Volume 89fL (79-100) Mean Corpuscular Hemoglobin 28pg (25-35) Mean Corpuscular Hemoglobin Concent 32g/dL (31-37) Red Cell Distribution Width 16.5% (11.5-14.5) Platelet Count 469x10^3/uL (140-400) Neutrophils (%) (Auto) 75% (31-73) Lymphocytes (%) (Auto) 18% (24-48) Monocytes (%) (Auto) 5% (0-9) Eosinophils (%) (Auto) 0% (0-3) Basophils (%) (Auto) 1% (0-3) Neutrophils # (Auto) 6.7x10^3uL (1.8-7.7) Lymphocytes # (Auto) 1.6x10^3/uL (1.0-4.8) Monocytes # (Auto) 0.5x10^3/uL (0.0-1.1) Eosinophils # (Auto) 0.0x10^3/uL (0.0-0.7) Basophils # (Auto) 0.1x10^3/uL (0.0-0.2) Sodium Level 138mmol/L (136-145) Potassium Level 4.0mmol/L (3.5-5.1) Chloride Level 94mmol/L (98-107) Carbon Dioxide Level 12mmol/L (21-32) Anion Gap 32 (6-14) Blood Urea Nitrogen 16mg/dL (7-20) Creatinine 1.0mg/dL (0.6-1.0) Estimated GFR (Cockcroft-Gault) 68.4 Glucose Level 126mg/dL (70-99) Calcium Level 10.7mg/dL (8.5-10.1) Total Bilirubin 0.7mg/dL (0.2-1.0) Direct Bilirubin 0.1mg/dL (0.0-0.2) Aspartate Amino Transf (AST/SGOT) 89U/L (15-37) Alanine Aminotransferase (ALT/SGPT) 78U/L (14-59) Alkaline Phosphatase 138U/L (46-116) Troponin I Quantitative < 0.017ng/mL (0.000-0.055) GM-Cms-P-Type Natriuretic Peptide 38pg/mL (0-124) Total Protein 9.2g/dL (6.4-8.2) Albumin 4.6g/dL (3.4-5.0) Lipase 228U/L (73-393) Prothrombin Time 13.8SEC (11.7-14.0) Prothromb Time International Ratio 1.1 (0.8-1.1) Activated Partial Thromboplast Time 26SEC (24-38) Lactic Acid Level 4.6mmol/L (0.4-2.0) Urine Collection Type Unknown Urine Color Yellow Urine Clarity Clear Urine pH 5.5 Urine Specific [place] 1.015 Urine Protein Negativemg/dL (NEG-TRACE) Urine Glucose (UA) Negativemg/dL (NEG) Urine Ketones (Stick) >=80mg/dL (NEG) Urine Blood Small (NEG) Urine Nitrite Negative (NEG) Urine Bilirubin Negative (NEG) Urine Urobilinogen Dipstick 0.2mg/dL (0.2 mg/dL) Urine Leukocyte Esterase Negative (NEG) Urine RBC Occ/HPF (0-2) Urine WBC Occ/HPF (0-4) Urine Squamous Epithelial Cells Few/LPF Urine Bacteria Few/HPF (0-FEW) Urine Mucus Slight/LPF Test 04/11/16 22:05 04/12/16 04:27 04/12/16 08:01 Lactic Acid Level 1.9mmol/L (0.4-2.0) White Blood Count 7.9x10^3/uL (4.0-11.0) Red Blood Count 3.37x10^6/uL (3.50-5.40) Hemoglobin 9.6g/dL (12.0-15.5) Hematocrit 29.5% (36.0-47.0) Mean Corpuscular Volume 88fL (79-100) Mean Corpuscular Hemoglobin 28pg (25-35) Mean Corpuscular Hemoglobin Concent 32g/dL (31-37) Red Cell Distribution Width 16.2% (11.5-14.5) Platelet Count 360x10^3/uL (140-400) Neutrophils (%) (Auto) 68% (31-73) Lymphocytes (%) (Auto) 20% (24-48) Monocytes (%) (Auto) 12% (0-9) Eosinophils (%) (Auto) 0% (0-3) Basophils (%) (Auto) 1% (0-3) Neutrophils # (Auto) 5.3x10^3uL (1.8-7.7) Lymphocytes # (Auto) 1.5x10^3/uL (1.0-4.8) Monocytes # (Auto) 1.0x10^3/uL (0.0-1.1) Eosinophils # (Auto) 0.0x10^3/uL (0.0-0.7) Basophils # (Auto) 0.0x10^3/uL (0.0-0.2) Sodium Level 135mmol/L (136-145) Potassium Level 3.8mmol/L (3.5-5.1) Chloride Level 99mmol/L (98-107) Carbon Dioxide Level 22mmol/L (21-32) Anion Gap 14 (6-14) Blood Urea Nitrogen 11mg/dL (7-20) Creatinine 0.9mg/dL (0.6-1.0) Estimated GFR (Cockcroft-Gault) 77.3 Glucose Level 141mg/dL (70-99) Calcium Level 9.0mg/dL (8.5-10.1) Glucose (Fingerstick) 109mg/dL (70-99) Assessment and Plan Assessmemt and Plan Problems Medical Problems: (1) Hematemesis Status: Acute (2) Hypovolemia Status: Acute (3) Lactic acidosis Status: Acute (4) Tachycardia Status: Acute Problems: Comment Review of Relevant I have reviewed the following items mayank (where applicable) has been applied. Labs Laboratory Tests Test 04/11/16 17:40 04/11/16 18:36 04/11/16 18:40 04/11/16 18:55 White Blood Count 8.9x10^3/uL (4.0-11.0) Red Blood Count 4.31x10^6/uL (3.50-5.40) Hemoglobin 12.1g/dL (12.0-15.5) Hematocrit 38.2% (36.0-47.0) Mean Corpuscular Volume 89fL (79-100) Mean Corpuscular Hemoglobin 28pg (25-35) Mean Corpuscular Hemoglobin Concent 32g/dL (31-37) Red Cell Distribution Width 16.5% (11.5-14.5) Platelet Count 469x10^3/uL (140-400) Neutrophils (%) (Auto) 75% (31-73) Lymphocytes (%) (Auto) 18% (24-48) Monocytes (%) (Auto) 5% (0-9) Eosinophils (%) (Auto) 0% (0-3) Basophils (%) (Auto) 1% (0-3) Neutrophils # (Auto) 6.7x10^3uL (1.8-7.7) Lymphocytes # (Auto) 1.6x10^3/uL (1.0-4.8) Monocytes # (Auto) 0.5x10^3/uL (0.0-1.1) Eosinophils # (Auto) 0.0x10^3/uL (0.0-0.7) Basophils # (Auto) 0.1x10^3/uL (0.0-0.2) Sodium Level 138mmol/L (136-145) Potassium Level 4.0mmol/L (3.5-5.1) Chloride Level 94mmol/L (98-107) Carbon Dioxide Level 12mmol/L (21-32) Anion Gap 32 (6-14) Blood Urea Nitrogen 16mg/dL (7-20) Creatinine 1.0mg/dL (0.6-1.0) Estimated GFR (Cockcroft-Gault) 68.4 Glucose Level 126mg/dL (70-99) Calcium Level 10.7mg/dL (8.5-10.1) Total Bilirubin 0.7mg/dL (0.2-1.0) Direct Bilirubin 0.1mg/dL (0.0-0.2) Aspartate Amino Transf (AST/SGOT) 89U/L (15-37) Alanine Aminotransferase (ALT/SGPT) 78U/L (14-59) Alkaline Phosphatase 138U/L (46-116) Troponin I Quantitative < 0.017ng/mL (0.000-0.055) YF-Xzy-K-Type Natriuretic Peptide 38pg/mL (0-124) Total Protein 9.2g/dL (6.4-8.2) Albumin 4.6g/dL (3.4-5.0) Lipase 228U/L (73-393) Prothrombin Time 13.8SEC (11.7-14.0) Prothromb Time International Ratio 1.1 (0.8-1.1) Activated Partial Thromboplast Time 26SEC (24-38) Lactic Acid Level 4.6mmol/L (0.4-2.0) Urine Collection Type Unknown Urine Color Yellow Urine Clarity Clear Urine pH 5.5 Urine Specific [place] 1.015 Urine Protein Negativemg/dL (NEG-TRACE) Urine Glucose (UA) Negativemg/dL (NEG) Urine Ketones (Stick) >=80mg/dL (NEG) Urine Blood Small (NEG) Urine Nitrite Negative (NEG) Urine Bilirubin Negative (NEG) Urine Urobilinogen Dipstick 0.2mg/dL (0.2 mg/dL) Urine Leukocyte Esterase Negative (NEG) Urine RBC Occ/HPF (0-2) Urine WBC Occ/HPF (0-4) Urine Squamous Epithelial Cells Few/LPF Urine Bacteria Few/HPF (0-FEW) Urine Mucus Slight/LPF Test 04/11/16 22:05 04/12/16 04:27 04/12/16 08:01 Lactic Acid Level 1.9mmol/L (0.4-2.0) White Blood Count 7.9x10^3/uL (4.0-11.0) Red Blood Count 3.37x10^6/uL (3.50-5.40) Hemoglobin 9.6g/dL (12.0-15.5) Hematocrit 29.5% (36.0-47.0) Mean Corpuscular Volume 88fL (79-100) Mean Corpuscular Hemoglobin 28pg (25-35) Mean Corpuscular Hemoglobin Concent 32g/dL (31-37) Red Cell Distribution Width 16.2% (11.5-14.5) Platelet Count 360x10^3/uL (140-400) Neutrophils (%) (Auto) 68% (31-73) Lymphocytes (%) (Auto) 20% (24-48) Monocytes (%) (Auto) 12% (0-9) Eosinophils (%) (Auto) 0% (0-3) Basophils (%) (Auto) 1% (0-3) Neutrophils # (Auto) 5.3x10^3uL (1.8-7.7) Lymphocytes # (Auto) 1.5x10^3/uL (1.0-4.8) Monocytes # (Auto) 1.0x10^3/uL (0.0-1.1) Eosinophils # (Auto) 0.0x10^3/uL (0.0-0.7) Basophils # (Auto) 0.0x10^3/uL (0.0-0.2) Sodium Level 135mmol/L (136-145) Potassium Level 3.8mmol/L (3.5-5.1) Chloride Level 99mmol/L (98-107) Carbon Dioxide Level 22mmol/L (21-32) Anion Gap 14 (6-14) Blood Urea Nitrogen 11mg/dL (7-20) Creatinine 0.9mg/dL (0.6-1.0) Estimated GFR (Cockcroft-Gault) 77.3 Glucose Level 141mg/dL (70-99) Calcium Level 9.0mg/dL (8.5-10.1) Glucose (Fingerstick) 109mg/dL (70-99) Laboratory Tests Test 04/11/16 17:40 04/11/16 18:36 04/11/16 18:40 04/11/16 18:55 White Blood Count 8.9x10^3/uL (4.0-11.0) Red Blood Count 4.31x10^6/uL (3.50-5.40) Hemoglobin 12.1g/dL (12.0-15.5) Hematocrit 38.2% (36.0-47.0) Mean Corpuscular Volume 89fL (79-100) Mean Corpuscular Hemoglobin 28pg (25-35) Mean Corpuscular Hemoglobin Concent 32g/dL (31-37) Red Cell Distribution Width 16.5% (11.5-14.5) Platelet Count 469x10^3/uL (140-400) Neutrophils (%) (Auto) 75% (31-73) Lymphocytes (%) (Auto) 18% (24-48) Monocytes (%) (Auto) 5% (0-9) Eosinophils (%) (Auto) 0% (0-3) Basophils (%) (Auto) 1% (0-3) Neutrophils # (Auto) 6.7x10^3uL (1.8-7.7) Lymphocytes # (Auto) 1.6x10^3/uL (1.0-4.8) Monocytes # (Auto) 0.5x10^3/uL (0.0-1.1) Eosinophils # (Auto) 0.0x10^3/uL (0.0-0.7) Basophils # (Auto) 0.1x10^3/uL (0.0-0.2) Sodium Level 138mmol/L (136-145) Potassium Level 4.0mmol/L (3.5-5.1) Chloride Level 94mmol/L (98-107) Carbon Dioxide Level 12mmol/L (21-32) Anion Gap 32 (6-14) Blood Urea Nitrogen 16mg/dL (7-20) Creatinine 1.0mg/dL (0.6-1.0) Estimated GFR (Cockcroft-Gault) 68.4 Glucose Level 126mg/dL (70-99) Calcium Level 10.7mg/dL (8.5-10.1) Total Bilirubin 0.7mg/dL (0.2-1.0) Direct Bilirubin 0.1mg/dL (0.0-0.2) Aspartate Amino Transf (AST/SGOT) 89U/L (15-37) Alanine Aminotransferase (ALT/SGPT) 78U/L (14-59) Alkaline Phosphatase 138U/L (46-116) Troponin I Quantitative < 0.017ng/mL (0.000-0.055) DF-Fbc-D-Type Natriuretic Peptide 38pg/mL (0-124) Total Protein 9.2g/dL (6.4-8.2) Albumin 4.6g/dL (3.4-5.0) Lipase 228U/L (73-393) Prothrombin Time 13.8SEC (11.7-14.0) Prothromb Time International Ratio 1.1 (0.8-1.1) Activated Partial Thromboplast Time 26SEC (24-38) Lactic Acid Level 4.6mmol/L (0.4-2.0) Urine Collection Type Unknown Urine Color Yellow Urine Clarity Clear Urine pH 5.5 Urine Specific [place] 1.015 Urine Protein Negativemg/dL (NEG-TRACE) Urine Glucose (UA) Negativemg/dL (NEG) Urine Ketones (Stick) >=80mg/dL (NEG) Urine Blood Small (NEG) Urine Nitrite Negative (NEG) Urine Bilirubin Negative (NEG) Urine Urobilinogen Dipstick 0.2mg/dL (0.2 mg/dL) Urine Leukocyte Esterase Negative (NEG) Urine RBC Occ/HPF (0-2) Urine WBC Occ/HPF (0-4) Urine Squamous Epithelial Cells Few/LPF Urine Bacteria Few/HPF (0-FEW) Urine Mucus Slight/LPF Test 04/11/16 22:05 04/12/16 04:27 04/12/16 08:01 Lactic Acid Level 1.9mmol/L (0.4-2.0) White Blood Count 7.9x10^3/uL (4.0-11.0) Red Blood Count 3.37x10^6/uL (3.50-5.40) Hemoglobin 9.6g/dL (12.0-15.5) Hematocrit 29.5% (36.0-47.0) Mean Corpuscular Volume 88fL (79-100) Mean Corpuscular Hemoglobin 28pg (25-35) Mean Corpuscular Hemoglobin Concent 32g/dL (31-37) Red Cell Distribution Width 16.2% (11.5-14.5) Platelet Count 360x10^3/uL (140-400) Neutrophils (%) (Auto) 68% (31-73) Lymphocytes (%) (Auto) 20% (24-48) Monocytes (%) (Auto) 12% (0-9) Eosinophils (%) (Auto) 0% (0-3) Basophils (%) (Auto) 1% (0-3) Neutrophils # (Auto) 5.3x10^3uL (1.8-7.7) Lymphocytes # (Auto) 1.5x10^3/uL (1.0-4.8) Monocytes # (Auto) 1.0x10^3/uL (0.0-1.1) Eosinophils # (Auto) 0.0x10^3/uL (0.0-0.7) Basophils # (Auto) 0.0x10^3/uL (0.0-0.2) Sodium Level 135mmol/L (136-145) Potassium Level 3.8mmol/L (3.5-5.1) Chloride Level 99mmol/L (98-107) Carbon Dioxide Level 22mmol/L (21-32) Anion Gap 14 (6-14) Blood Urea Nitrogen 11mg/dL (7-20) Creatinine 0.9mg/dL (0.6-1.0) Estimated GFR (Cockcroft-Gault) 77.3 Glucose Level 141mg/dL (70-99) Calcium Level 9.0mg/dL (8.5-10.1) Glucose (Fingerstick) 109mg/dL (70-99) Medications Current Medications Hydromorphone HCl (Dilaudid) 0.5 mg PRN Q1HR PRN IV SEVERE PAIN Last administered on 04/12/16 01:20; Start 04/11/16 at 18:00; Stop 04/12/16 at 01:20; Status DC Ondansetron HCl 4 mg 4 mg 1X ONCE IV Last administered on 04/11/16 18:08; Start 04/11/16 at 18:00; Stop 04/11/16 at 18:01; Status DC Sodium Chloride (Iv Sodium Chloride 0.9% 1000ml Bag) 1,000 ml @ 1,000 mls/hr 1X ONCE IV Last administered on 04/11/16 18:09; Start 04/11/16 at 18:00; Stop 04/11/16 at 18:59; Status DC Iohexol (Omnipaque 300 Mg/ml) 75 ml 1X ONCE IV Last administered on 04/11/16 19:42; Start 04/11/16 at 19:30; Stop 04/11/16 at 19:31; Status DC Info (Do NOT chart on this entry -- for MONITORING) 1 each PRN DAILY PRN MC SEE COMMENTS; Start 04/11/16 at 19:30; Stop 04/13/16 at 19:29 Ondansetron HCl (Zofran) 4 mg PRN Q8HRS PRN IV NAUSEA/VOMITING Last administered on 04/12/16 10:17; Start 04/11/16 at 19:45; Stop 04/12/16 at 19:44 Morphine Sulfate 2 mg 2 mg PRN Q2HR PRN IV PAIN Last administered on 04/12/16 08:09; Start 04/11/16 at 19:45; Stop 04/12/16 at 19:44 Sodium Chloride 1,000 ml @ 1,000 mls/hr 1X ONCE IV Last administered on 20:10; Start 04/11/16 at 19:45; Stop 04/11/16 at 20:44; Status DC Ceftriaxone Sodium 50 ml @ 100 mls/hr 1X ONCE IV Last administered on 22:19; Start 04/11/16 at 21:30; Stop 04/11/16 at 21:59; Status DC Pantoprazole Sodium 80 mg/ Sodium Chloride 100 ml @ 10 mls/hr 1X ONCE IV Last administered on 04/11/16 22:46; Start 04/11/16 at 22:00; Stop 04/12/16 at 07: 59; Status DC Sodium Chloride 1,000 ml @ 75 mls/hr [id number] IV Last administered on 04/12/16 01:19; Start 04/12/16 at 01:00 Pantoprazole Sodium/Sodium Chloride (Protonix Iv/Iv Sodium Chloride 0.9% 100ml) 100 ml @ 10 mls/hr Q10H IV Last administered on 04/12/16t 08:02; Start 04/12/16 at 08:00 Active Scripts Active Pantoprazole Sodium 40 Mg Tablet.dr 40 Mg PO DAILYAC Feosol (Ferrous Sulfate) 325 Mg Tablet 325 Mg PO [id number] Escitalopram Oxalate 10 Mg Tablet 1 Tab PO DAILY Metoprolol Tartrate 50 Mg Tablet 1 Tab PO DAILY Sertraline Hcl 50 Mg Tablet 50 Mg PO DAILY Reported Trazodone Hcl 50 Mg Tablet 1 Tab PO QHS Levemir (Insulin Detemir) 100 Unit/1 Ml Vial 17 Unit SQ HS Olanzapine 10 Mg Tablet 10 Mg PO DAILY Metformin Hcl 500 Mg Tablet 1 Tab PO BID Simvastatin 10 Mg Tablet 1 Tab PO QHS Cyclobenzaprine Hcl 10 Mg Tablet 1 Tab PO QHS Hydrocodone-Apap 7.5-325 (Hydrocodone Bit/Acetaminophen) 1 Each Tablet 1 Each PO QID Premarin (Estrogens, Conjugated) 1.25 Mg Tablet 1.25 Mg PO DAILY Vitals/I & O Vital Sign - Last 24 Hours 04/11/16 04/11/16 04/11/16 04/11/16 17:07 17:30 18:00 18:09 Temp 98.6 98.6 Pulse 115 122 114 Resp 18 22 25 22 B/P 174/85 135/79 152/89 Pulse Ox 100 99 100 100 O2 Delivery Room Air Room Air Room Air Room Air 04/11/16 04/11/16 04/11/16 04/11/16 18:30 19:00 19:30 20:00 Pulse 116 118 108 110 Resp 22 22 20 B/P 139/78 Pulse Ox 94 99 100 100 O2 Delivery Room Air Room Air Room Air Room Air 04/11/16 04/11/16 04/11/16 04/11/16 20:30 21:30 21:50 22:00 Pulse 106 126 112 Resp 17 24 22 B/P 141/88 Pulse Ox 100 100 99 O2 Delivery Room Air Room Air Room Air Room Air 04/11/16 04/12/16 04/12/16 04/12/16 23:00 00:12 00:30 00:45 Temp 98.6 98.6 Pulse 99 100 98 102 Resp 20 22 B/P 144/90 152/76 149/76 Pulse Ox 97 100 100 O2 Delivery Room Air Room Air Room Air 04/12/16 04/12/16 04/12/16 04/12/16 01:00 01:15 01:20 01:30 Pulse 100 94 100 Resp 26 25 24 22 B/P 134/67 122/70 135/72 Pulse Ox 100 100 99 97 O2 Delivery Room Air Room Air Room Air Room Air 04/12/16 04/12/16 04/12/16 04/12/16 01:44 01:45 02:00 02:30 Pulse 98 100 100 Resp 17 B/P 121/63 136/72 138/74 Pulse Ox 98 97 99 O2 Delivery Room Air Room Air Room Air Room Air 04/12/16 04/12/16 04/12/16 04/12/16 03:00 04:00 04:00 05:00 Temp 98.3 98.3 Pulse 106 111 92 Resp 36 28 27 B/P 128/71 109/55 122/87 Pulse Ox 99 99 100 O2 Delivery Room Air Room Air Room Air Room Air 04/12/16 04/12/16 04/12/16 04/12/16 05:04 06:00 06:46 07:14 Pulse 96 99 Resp 35 16 16 16 B/P 134/83 130/80 Pulse Ox 100 100 99 O2 Delivery Room Air Room Air Room Air 04/12/16 04/12/16 04/12/16 04/12/16 07:41 08:02 08:09 08:39 Temp 98.3 98.3 Pulse 96 Resp 24 B/P 138/82 Pulse Ox 98 98 98 O2 Delivery Room Air Room Air Room Air Room Air 04/12/16 04/12/16 09:00 10:17 Pulse 89 99 Resp 15 26 B/P 140/80 146/84 Pulse Ox 99 100 O2 Delivery Room Air Room Air Intake and Output 04/11/16 04/11/16 04/12/16 15:00 23:00 07:00 Intake Total 1050 ml 296 ml Output Total 40 ml Balance 1050 ml 256 ml FATOUMATA WHITLOCK MD Apr 12, 2016 10:27
[2016-04-12] MEDS: LORAZEPAM 2 MG/ML VIAL IV PRN ×2 (11:37→20:26)
[2016-04-12 14:18] LABS: HEMATOCRIT 35.3 % (36.0-47.0); HEMOGLOBIN 11.3 g/dL (12.0-15.5); RED BLOOD COUNT 3.92 x10^6/uL (3.50-5.40); RED CELL DISTRIBUTION WIDTH 16.7 % (11.5-14.5); WHITE BLOOD COUNT 7.3 x10^3/uL (4.0-11.0)
[2016-04-12] MEDS ORDERED: PROPOFOL 20 ML IV ONE (15:57)
[2016-04-12] MEDS ORDERED: LIDOCAINE 2% PF Vial for OR 5 ML VIAL. ONE (15:57)
[2016-04-12] MEDS: IV RINGERS,LACTATED 1000ML 1,000 ML IV SCH ×2 (16:23→23:41)
--- NOTE | 2016-04-12 16:57 | PDOC4 ---
Operative Note Operative Note EGD Meds propofol iv per anesthesia Pre-op dx acute blood loss anemia/hx cirrhosis/mw tear Post-op dx erosive gastritis no varices Plan resume diet serial cbcs AA/o/P detox for alcohol abuse ANA RIVAS MD Apr 12, 2016 16:57
[2016-04-12] MEDS: MVI, ADULT NO.4 WITH VIT K 10 ML, THIAMINE 100 MG, FOLIC ACID 1 MG in IV NORMAL SALINE ... IV SCH ×4 (18:16)
[2016-04-13] VITALS (8 sets, daily range): BP systolic 108–148; BP diastolic 72–92
[2016-04-13] MEDS: LORAZEPAM 2 MG/ML VIAL IV PRN ×3 (02:46→22:02)
[2016-04-13] MEDS: IV NORMAL SALINE 1000ML BAG 1,000 ML IV SCH ×2 (04:33→20:24)
[2016-04-13] MEDS: PANTOPRAZOLE SODIUM IV 80 MG in IV NORMAL SALINE 100ML 100 ML IV SCH (04:33)
[2016-04-13] MEDS: HYDROCODONE/APAP 7.5/325MG TABLET. PO PRN ×2 (04:41→20:25)
[2016-04-13] MEDS: MVI, ADULT NO.4 WITH VIT K 10 ML, THIAMINE 100 MG, FOLIC ACID 1 MG in IV NORMAL SALINE ... IV SCH ×4 (08:33)
[2016-04-13] MEDS ORDERED: HYDROCODONE/APAP 7.5/325MG TABLET. PO SCH (09:00)
--- NOTE | 2016-04-13 09:41 | PDOC ---
Subjective: Subjective: Nausea but no vomiting. Tolerating diet. No abd pain. Normal-colored stool this a.m. Objective: Vital Signs: Vital Signs Date Time Temp Pulse Resp B/P Pulse Ox O2 Delivery O2 Flow Rate FiO2 04/13/16 07:00 98.3 102 18 124/84 100 Room Air 98.3 Labs: Laboratory Tests Test 04/12/16 14:05 04/12/16 17:27 04/12/16 21:03 04/13/16 07:53 White Blood Count 7.3x10^3/uL Red Blood Count 3.92x10^6/uL Hemoglobin 11.3g/dL Hematocrit 35.3% Mean Corpuscular Volume 90fL Mean Corpuscular Hemoglobin 29pg Mean Corpuscular Hemoglobin Concent 32g/dL Red Cell Distribution Width 16.7% Platelet Count 296x10^3/uL Glucose (Fingerstick) 94mg/dL 182mg/dL 138mg/dL Imaging: EGD 04/11/16: erosive gastritis, no varices. PE: GEN: NAD, was asleep LUNGS: CTAB HEART: RRR ABD: NABS, S/ND, much less tender than yesterday NEURO/PSYCH: alert, some confusion A/P: Hematemesis - resolved -h/o M-W tear clipped 02/27/16, erosive gastritis 04/12/16 Abdominal pain, anorexia - improved Anemia -Hgb improving; also noted last admission -EGD as above -reports normal colonoscopy ~4 years ago Alcoholism -no varices on EGDs in 02/2016 and 04/2016 -- Will change PPI drip to PO. Monitor labs, symptoms. Encouraged alcohol cessation, AA, etc. Consider outpt colonoscopy as discussed last admission. STARR CASILLAS Apr 13, 2016 09:41
--- NOTE | 2016-04-13 12:16 | PDOC ---
PROGRESS NOTES Chief Complaint Chief Complaint Hematemesis Abdominal pain Alcohol abuse Anemia H/o M-W tears/p clip 02/27/16 History of Present Illness History of Present Illness EGD yesterday hemogram stable maria antonia food, diet advance Protonix. alcohol withdrawal prevention - iv and PO ativan, mulitivitamins Vitals Vitals Vital Signs Date Time Temp Pulse Resp B/P Pulse Ox O2 Delivery O2 Flow Rate FiO2 04/13/16 10:55 98.2 89 18 119/75 99 Room Air 98.2 Physical Exam General: Alert, Oriented X3 Heart: Regular rate, Normal S1, Normal S2 Lungs: Clear, Wheezing Abdomen: Soft Extremities: No clubbing, No cyanosis, No edema Skin: No rashes, No breakdown Labs LABS Laboratory Tests Test 04/12/16 14:05 04/12/16 17:27 04/12/16 21:03 04/13/16 07:53 White Blood Count 7.3x10^3/uL (4.0-11.0) Red Blood Count 3.92x10^6/uL (3.50-5.40) Hemoglobin 11.3g/dL (12.0-15.5) Hematocrit 35.3% (36.0-47.0) Mean Corpuscular Volume 90fL (79-100) Mean Corpuscular Hemoglobin 29pg (25-35) Mean Corpuscular Hemoglobin Concent 32g/dL (31-37) Red Cell Distribution Width 16.7% (11.5-14.5) Platelet Count 296x10^3/uL (140-400) Glucose (Fingerstick) 94mg/dL (70-99) 182mg/dL (70-99) 138mg/dL (70-99) Test 04/13/16 11:11 Glucose (Fingerstick) 175mg/dL (70-99) Assessment and Plan Assessmemt and Plan PO ativan, would like for DC to maintain sobriety Problems Medical Problems: (1) Hematemesis Status: Acute (2) Hypovolemia Status: Acute (3) Lactic acidosis Status: Acute (4) Tachycardia Status: Acute Problems: Comment Review of Relevant I have reviewed the following items mayank (where applicable) has been applied. Labs Laboratory Tests Test 04/11/16 17:40 04/11/16 18:36 04/11/16 18:40 04/11/16 18:55 White Blood Count 8.9x10^3/uL (4.0-11.0) Red Blood Count 4.31x10^6/uL (3.50-5.40) Hemoglobin 12.1g/dL (12.0-15.5) Hematocrit 38.2% (36.0-47.0) Mean Corpuscular Volume 89fL (79-100) Mean Corpuscular Hemoglobin 28pg (25-35) Mean Corpuscular Hemoglobin Concent 32g/dL (31-37) Red Cell Distribution Width 16.5% (11.5-14.5) Platelet Count 469x10^3/uL (140-400) Neutrophils (%) (Auto) 75% (31-73) Lymphocytes (%) (Auto) 18% (24-48) Monocytes (%) (Auto) 5% (0-9) Eosinophils (%) (Auto) 0% (0-3) Basophils (%) (Auto) 1% (0-3) Neutrophils # (Auto) 6.7x10^3uL (1.8-7.7) Lymphocytes # (Auto) 1.6x10^3/uL (1.0-4.8) Monocytes # (Auto) 0.5x10^3/uL (0.0-1.1) Eosinophils # (Auto) 0.0x10^3/uL (0.0-0.7) Basophils # (Auto) 0.1x10^3/uL (0.0-0.2) Sodium Level 138mmol/L (136-145) Potassium Level 4.0mmol/L (3.5-5.1) Chloride Level 94mmol/L (98-107) Carbon Dioxide Level 12mmol/L (21-32) Anion Gap 32 (6-14) Blood Urea Nitrogen 16mg/dL (7-20) Creatinine 1.0mg/dL (0.6-1.0) Estimated GFR (Cockcroft-Gault) 68.4 Glucose Level 126mg/dL (70-99) Calcium Level 10.7mg/dL (8.5-10.1) Total Bilirubin 0.7mg/dL (0.2-1.0) Direct Bilirubin 0.1mg/dL (0.0-0.2) Aspartate Amino Transf (AST/SGOT) 89U/L (15-37) Alanine Aminotransferase (ALT/SGPT) 78U/L (14-59) Alkaline Phosphatase 138U/L (46-116) Troponin I Quantitative < 0.017ng/mL (0.000-0.055) VN-Amg-U-Type Natriuretic Peptide 38pg/mL (0-124) Total Protein 9.2g/dL (6.4-8.2) Albumin 4.6g/dL (3.4-5.0) Lipase 228U/L (73-393) Prothrombin Time 13.8SEC (11.7-14.0) Prothromb Time International Ratio 1.1 (0.8-1.1) Activated Partial Thromboplast Time 26SEC (24-38) Lactic Acid Level 4.6mmol/L (0.4-2.0) Urine Collection Type Unknown Urine Color Yellow Urine Clarity Clear Urine pH 5.5 Urine Specific [place] 1.015 Urine Protein Negativemg/dL (NEG-TRACE) Urine Glucose (UA) Negativemg/dL (NEG) Urine Ketones (Stick) >=80mg/dL (NEG) Urine Blood Small (NEG) Urine Nitrite Negative (NEG) Urine Bilirubin Negative (NEG) Urine Urobilinogen Dipstick 0.2mg/dL (0.2 mg/dL) Urine Leukocyte Esterase Negative (NEG) Urine RBC Occ/HPF (0-2) Urine WBC Occ/HPF (0-4) Urine Squamous Epithelial Cells Few/LPF Urine Bacteria Few/HPF (0-FEW) Urine Mucus Slight/LPF Test 04/11/16 22:05 04/12/16 00:45 04/12/16 04:27 04/12/16 08:01 Lactic Acid Level 1.9mmol/L (0.4-2.0) Nasal Screen MRSA (PCR) Negative (Negative) White Blood Count 7.9x10^3/uL (4.0-11.0) Red Blood Count 3.37x10^6/uL (3.50-5.40) Hemoglobin 9.6g/dL (12.0-15.5) Hematocrit 29.5% (36.0-47.0) Mean Corpuscular Volume 88fL (79-100) Mean Corpuscular Hemoglobin 28pg (25-35) Mean Corpuscular Hemoglobin Concent 32g/dL (31-37) Red Cell Distribution Width 16.2% (11.5-14.5) Platelet Count 360x10^3/uL (140-400) Neutrophils (%) (Auto) 68% (31-73) Lymphocytes (%) (Auto) 20% (24-48) Monocytes (%) (Auto) 12% (0-9) Eosinophils (%) (Auto) 0% (0-3) Basophils (%) (Auto) 1% (0-3) Neutrophils # (Auto) 5.3x10^3uL (1.8-7.7) Lymphocytes # (Auto) 1.5x10^3/uL (1.0-4.8) Monocytes # (Auto) 1.0x10^3/uL (0.0-1.1) Eosinophils # (Auto) 0.0x10^3/uL (0.0-0.7) Basophils # (Auto) 0.0x10^3/uL (0.0-0.2) Sodium Level 135mmol/L (136-145) Potassium Level 3.8mmol/L (3.5-5.1) Chloride Level 99mmol/L (98-107) Carbon Dioxide Level 22mmol/L (21-32) Anion Gap 14 (6-14) Blood Urea Nitrogen 11mg/dL (7-20) Creatinine 0.9mg/dL (0.6-1.0) Estimated GFR (Cockcroft-Gault) 77.3 Glucose Level 141mg/dL (70-99) Calcium Level 9.0mg/dL (8.5-10.1) Glucose (Fingerstick) 109mg/dL (70-99) Test 04/12/16 14:05 04/12/16 17:27 04/12/16 21:03 04/13/16 07:53 White Blood Count 7.3x10^3/uL (4.0-11.0) Red Blood Count 3.92x10^6/uL (3.50-5.40) Hemoglobin 11.3g/dL (12.0-15.5) Hematocrit 35.3% (36.0-47.0) Mean Corpuscular Volume 90fL (79-100) Mean Corpuscular Hemoglobin 29pg (25-35) Mean Corpuscular Hemoglobin Concent 32g/dL (31-37) Red Cell Distribution Width 16.7% (11.5-14.5) Platelet Count 296x10^3/uL (140-400) Glucose (Fingerstick) 94mg/dL (70-99) 182mg/dL (70-99) 138mg/dL (70-99) Test 04/13/16 11:11 Glucose (Fingerstick) 175mg/dL (70-99) Laboratory Tests Test 04/12/16 14:05 04/12/16 17:27 04/12/16 21:03 04/13/16 07:53 White Blood Count 7.3x10^3/uL (4.0-11.0) Red Blood Count 3.92x10^6/uL (3.50-5.40) Hemoglobin 11.3g/dL (12.0-15.5) Hematocrit 35.3% (36.0-47.0) Mean Corpuscular Volume 90fL (79-100) Mean Corpuscular Hemoglobin 29pg (25-35) Mean Corpuscular Hemoglobin Concent 32g/dL (31-37) Red Cell Distribution Width 16.7% (11.5-14.5) Platelet Count 296x10^3/uL (140-400) Glucose (Fingerstick) 94mg/dL (70-99) 182mg/dL (70-99) 138mg/dL (70-99) Test 04/13/16 11:11 Glucose (Fingerstick) 175mg/dL (70-99) Medications Current Medications Hydromorphone HCl (Dilaudid) 0.5 mg PRN Q1HR PRN IV SEVERE PAIN Last administered on 04/12/16 01:20; Start 04/11/16 at 18:00; Stop 04/12/16 at 01:20; Status DC Ondansetron HCl 4 mg 4 mg 1X ONCE IV Last administered on 04/11/16 18:08; Start 04/11/16 at 18:00; Stop 04/11/16 at 18:01; Status DC Sodium Chloride (Iv Sodium Chloride 0.9% 1000ml Bag) 1,000 ml @ 1,000 mls/hr 1X ONCE IV Last administered on 04/11/16 18:09; Start 04/11/16 at 18:00; Stop 04/11/16 at 18:59; Status DC Iohexol (Omnipaque 300 Mg/ml) 75 ml 1X ONCE IV Last administered on 04/11/16 19:42; Start 04/11/16 at 19:30; Stop 04/11/16 at 19:31; Status DC Info (Do NOT chart on this entry -- for MONITORING) 1 each PRN DAILY PRN MC SEE COMMENTS; Start 04/11/16 at 19:30; Stop 04/13/16 at 19:29 Ondansetron HCl (Zofran) 4 mg PRN Q8HRS PRN IV NAUSEA/VOMITING Last administered on 04/12/16 10:17; Start 04/11/16 at 19:45; Stop 04/12/16 at 19:44; Status DC Morphine Sulfate 2 mg 2 mg PRN Q2HR PRN IV PAIN Last administered on 04/12/16 18:17; Start 04/11/16 at 19:45; Stop 04/12/16 at 19:44; Status DC Sodium Chloride 1,000 ml @ 1,000 mls/hr 1X ONCE IV Last administered on 20:10; Start 04/11/16 at 19:45; Stop 04/11/16 at 20:44; Status DC Ceftriaxone Sodium 50 ml @ 100 mls/hr 1X ONCE IV Last administered on 22:19; Start 04/11/16 at 21:30; Stop 04/11/16 at 21:59; Status DC Pantoprazole Sodium 80 mg/ Sodium Chloride 100 ml @ 10 mls/hr 1X ONCE IV Last administered on 04/11/16 22:46; Start 04/11/16 at 22:00; Stop 04/12/16 at 17: 03; Status DC Sodium Chloride 1,000 ml @ 75 mls/hr [id number] IV Last administered on 04/13/16 04:33; Start 04/12/16 at 01:00 Pantoprazole Sodium/Sodium Chloride (Protonix Iv/Iv Sodium Chloride 0.9% 100ml) 100 ml @ 10 mls/hr Q10H IV Last administered on 04/13/16 04:33; Start 04/12/16 at 08:00; Stop 04/13/16 at 09:40; Status DC Lorazepam 2 mg 2 mg PRN Q4HRS PRN IV ANXIETY / AGITATION Last administered on 08:34; Start 04/12/16 at 11:30 Multivitamins/ Minerals 10 ml/ Thiamine HCl 100 mg/Folic Acid 1 mg/Sodium Chloride 1,011.2 ml @ 100 mls/ hr DAILY IV Last administered on 04/13/16 08:33 ; Start 04/12/16 at 14:00; Stop 04/18/16 at 13:59 Lactated Ringer's 1,000 ml @ 125 mls/hr Q8H IV Last administered on 04/12/16 16:23; Start 04/12/16 at 15:41; Stop 04/13/16 at 03:40; Status DC Propofol (Diprivan) 20 ml @ As Directed STK-MED ONCE IV ; Start 04/12/16 at 15:57 ; Stop 04/12/16 at 15:58; Status DC Lidocaine HCl (Lidocaine Pf 2% Vial) 5 ml STK-MED ONCE .ROUTE ; Start 04/12/16 at 15:57; Stop 04/12/16 at 15:58; Status DC Cyclobenzaprine HCl (Flexeril) 10 mg QHS PO ; Start 04/13/16 at 21:00 Acetaminophen/ Hydrocodone Bitart (Lortab 7.5/325) 1 tab QID PO ; Start 04/13/16 at 09:00; Stop 04/13/16 at 09:00; Status DC Acetaminophen/ Hydrocodone Bitart (Lortab 7.5/325) 1 tab PRN Q6HRS PRN PO SEVERE PAIN Last administered on 04/13/16 04:41; Start 04/13/16 at 04:36 Pantoprazole Sodium (Protonix) 40 mg DAILYAC PO ; Start 04/14/16 at 07:30 Active Scripts Active Pantoprazole Sodium 40 Mg Tablet.dr 40 Mg PO DAILYAC Feosol (Ferrous Sulfate) 325 Mg Tablet 325 Mg PO DAILYWBKFT Escitalopram Oxalate 10 Mg Tablet 1 Tab PO DAILY Metoprolol Tartrate 50 Mg Tablet 1 Tab PO DAILY Sertraline Hcl 50 Mg Tablet 50 Mg PO DAILY Reported Trazodone Hcl 50 Mg Tablet 1 Tab PO QHS Levemir (Insulin Detemir) 100 Unit/1 Ml Vial 17 Unit SQ HS Olanzapine 10 Mg Tablet 10 Mg PO DAILY Metformin Hcl 500 Mg Tablet 1 Tab PO BID Simvastatin 10 Mg Tablet 1 Tab PO QHS Cyclobenzaprine Hcl 10 Mg Tablet 1 Tab PO QHS Hydrocodone-Apap 7.5-325 (Hydrocodone Bit/Acetaminophen) 1 Each Tablet 1 Each PO QID Premarin (Estrogens, Conjugated) 1.25 Mg Tablet 1.25 Mg PO DAILY Vitals/I & O Vital Sign - Last 24 Hours 04/12/16 04/12/16 04/12/16 04/12/16 13:46 14:55 15:33 15:40 Temp 98.0 98.0 98 98.0 98.0 98.0 Pulse 83 91 94 Resp 18 18 16 B/P 134/80 132/75 Pulse Ox 100 99 100 O2 Delivery Room Air Room Air Room Air 04/12/16 04/12/16 04/12/16 04/12/16 16:55 17:10 18:17 19:00 Temp 98.0 98.0 98.5 98.0 98.0 98.5 Pulse 87 86 105 Resp 18 18 20 20 B/P 111/74 128/77 115/74 Pulse Ox 98 100 100 O2 Delivery Room Air Room Air Room Air Room Air 04/12/16 04/12/16 04/13/16 04/13/16 20:00 23:00 03:00 04:41 Temp 98.5 98.3 98.5 98.3 Pulse 97 92 Resp 18 18 18 B/P 113/80 121/77 Pulse Ox 98 100 100 O2 Delivery Room Air Room Air Room Air Room Air 04/13/16 04/13/16 04/13/16 05:41 07:00 10:55 Temp 98.3 98.2 98.3 98.2 Pulse 102 89 Resp 18 18 18 B/P 124/84 119/75 Pulse Ox 100 100 99 O2 Delivery Room Air Room Air Room Air Intake and Output 04/12/16 04/12/16 04/13/16 15:00 23:00 07:00 Intake Total 0 ml 440 ml 1140 ml Balance 0 ml 440 ml 1140 ml MARYLOU JENKINS MD Apr 13, 2016 12:16
--- NOTE | 2016-04-13 12:42 | PDOC ---
Provider Note Provider Note no further bloody emesis or stools. still with mild abd pain afeb vss abd soft nd mild epigastric tenderness a/p gastritis. care per gi. no surg plans. RADHA SINGH MD Apr 13, 2016 12:42
[2016-04-13] MEDS ORDERED: FENTANYL PF 100 MCG/2 ML VIAL. IV PRN (12:45)
[2016-04-13] MEDS: ONDANSETRON PF 4 MG/2 ML VIAL. IV PRN (12:55)
[2016-04-13] MEDS: LORAZEPAM 1 MG TABLET. PO PRN (20:25)
[2016-04-13] MEDS ORDERED: CYCLOBENZAPRINE 10 MG TABLET. PO SCH (21:00)
[2016-04-14 03:16] VITALS: BP 125/75
[2016-04-14] MEDS: HYDROCODONE/APAP 7.5/325MG TABLET. PO PRN (03:25)
[2016-04-14] MEDS: LORAZEPAM 1 MG TABLET. PO PRN ×2 (03:25→10:16)
[2016-04-14] MEDS: IV NORMAL SALINE 1000ML BAG 1,000 ML IV SCH (04:32)
[2016-04-14 07:00] VITALS: BP 133/91
[2016-04-14] MEDS ORDERED: PANTOPRAZOLE 40 MG TABLET. PO SCH (07:30)
[2016-04-14] MEDS: ONDANSETRON PF 4 MG/2 ML VIAL. IV PRN (08:13)
[2016-04-14] MEDS: MVI, ADULT NO.4 WITH VIT K 10 ML, THIAMINE 100 MG, FOLIC ACID 1 MG in IV NORMAL SALINE ... IV SCH ×4 (08:23)
[2016-04-14] MEDS ORDERED: FERR325T72 PO (08:50)
[2016-04-14] MEDS ORDERED: TRAZ50TA15 PO (08:50)
[2016-04-14] MEDS ORDERED: METO50TA2 PO (08:50)
[2016-04-14] MEDS ORDERED: LORA-434 PO (08:50)
[2016-04-14] MEDS ORDERED: METF500T4 PO (08:50)
[2016-04-14] MEDS ORDERED: CYCL10TA2 PO (08:50)
[2016-04-14] MEDS ORDERED: SERT50TA8 PO (08:50)
[2016-04-14] MEDS ORDERED: SIMV10TA3 PO (08:50)
[2016-04-14] MEDS ORDERED: ESTR1.25 PO (08:50)
[2016-04-14] MEDS ORDERED: ESCI10TA PO (08:50)
[2016-04-14] MEDS ORDERED: PANT40TA5 PO (08:50)
[2016-04-14] MEDS ORDERED: INSU100V13 SQ (08:50)
--- NOTE | 2016-04-14 10:30 | PDOC ---
MIKA ALAN TOLL BOOTH OPERATOR 04/14/16 1030: SURGICAL PROGRESS NOTE Subjective no hematemesis tolerating diet slight pain to epigastric, mainly after eating Vital Signs Vital Signs Date Time Temp Pulse Resp B/P Pulse Ox O2 Delivery O2 Flow Rate FiO2 04/14/16 07:00 97.9 86 18 133/91 100 Room Air 97.9 I&O Intake and Output 04/14/16 07:00 Intake Total 960 ml Balance 960 ml Intake Oral 960 ml # Voids 5 General: Alert, Oriented X3, Cooperative, No acute distress Abdomen: Soft, Other (ND, NTTP) Labs Laboratory Tests Test 04/12/16 14:05 04/12/16 17:27 04/12/16 21:03 04/13/16 07:53 White Blood Count 7.3x10^3/uL (4.0-11.0) Red Blood Count 3.92x10^6/uL (3.50-5.40) Hemoglobin 11.3g/dL (12.0-15.5) Hematocrit 35.3% (36.0-47.0) Mean Corpuscular Volume 90fL (79-100) Mean Corpuscular Hemoglobin 29pg (25-35) Mean Corpuscular Hemoglobin Concent 32g/dL (31-37) Red Cell Distribution Width 16.7% (11.5-14.5) Platelet Count 296x10^3/uL (140-400) Glucose (Fingerstick) 94mg/dL (70-99) 182mg/dL (70-99) 138mg/dL (70-99) Test 04/13/16 11:11 04/13/16 16:17 04/13/16 20:48 04/14/16 07:23 Glucose (Fingerstick) 175mg/dL (70-99) 186mg/dL (70-99) 110mg/dL (70-99) 143mg/dL (70-99) Laboratory Tests Test 04/13/16 11:11 04/13/16 16:17 04/13/16 20:48 04/14/16 07:23 Glucose (Fingerstick) 175mg/dL (70-99) 186mg/dL (70-99) 110mg/dL (70-99) 143mg/dL (70-99) Problem List Problems Medical Problems: (1) Hematemesis Status: Acute (2) Hypovolemia Status: Acute (3) Lactic acidosis Status: Acute (4) Tachycardia Status: Acute Assessment/Plan gastritis GI management, no surgical recs will be available as needed Problems: ANA WILL MD 04/14/16 1258: SURGICAL PROGRESS NOTE Assessment/Plan Reviewed, agree with above, will sign off; please call if needed in the future Problems: MIKA ALAN APRN Apr 14, 2016 10:30 ANA WILL MD Apr 14, 2016 12:58
[2016-04-14 11:11] VITALS: BP 135/83
--- NOTE | 2016-04-14 11:34 | PDOC ---
Subjective: Subjective: Feeling okay. Eating better. Has some RUQ pain. No recurrent bleeding. Ready to DC. Objective: Objective: Per RN - no further bleeding, DC today. Vital Signs: Vital Signs Date Time Temp Pulse Resp B/P Pulse Ox O2 Delivery O2 Flow Rate FiO2 04/14/16 11:11 97.8 84 18 135/83 100 Room Air 97.8 Labs: Laboratory Tests Test 04/13/16 16:17 04/13/16 20:48 04/14/16 07:23 Glucose (Fingerstick) 186mg/dL (70-99) 110mg/dL (70-99) 143mg/dL (70-99) PE: GEN: NAD LUNGS: CTAB HEART: RRR ABD: NABS, S/ND, vague RUQ discomfort NEURO/PSYCH: A & O 3 A/P: Hematemesis - resolved -h/o M-W tear clipped 02/27/16, erosive gastritis 04/12/16 RUQ pain Anorexia - improved Anemia -Hgb improving; also noted last admission -reports normal colonoscopy ~4 years ago -has been taking iron at home Alcoholism -no varices on EGDs in 02/2016 and 04/2016 Provided PPI Rx. Monitor labs as outpatient - consider outpatient colonoscopy if anemia/pain persists. Encouraged alcohol cessation. STARR CASILLAS Apr 14, 2016 11:34
== END 2016-04-14 13:04 | disposition home or self-care (01) | DRG 811 ==
LOC: ER 16:52 → 1 WEST ICU 22:05 → 5 SOUTH 04-12 13:30
PROVIDERS: ADMIT Internal Medicine; ATTEND Internal Medicine
PROC: 30233N1 Transfusion of Nonautologous Red Blood Cells into Peripheral Vein, Percutaneous Approach (ICD-10-PCS; 2016-04-11)
PROC: 0DJ08ZZ Inspection of Upper Intestinal Tract, Via Natural or Artificial Opening Endoscopic (ICD-10-PCS; principal; 2016-04-12 16:00)
DX: D62 Acute posthemorrhagic anemia (principal); K29.01 Acute gastritis with bleeding; E87.2 Acidosis; F10.20 Alcohol dependence, uncomplicated; K74.60 Unspecified cirrhosis of liver; Z87.19 Personal history of other diseases of the digestive system; R63.0 Anorexia; I10 Essential (primary) hypertension; E11.9 Type 2 diabetes mellitus without complications; E78.5 Hyperlipidemia, unspecified; E86.1 Hypovolemia; K76.0 Fatty (change of) liver, not elsewhere classified; Z80.3 Family history of malignant neoplasm of breast; Z82.49 Family history of ischemic heart disease and other diseases of the circulatory system; Z79.899 Other long term (current) drug therapy; K29.60 Other gastritis without bleeding
CPT/HCPCS: 36415; 71010; 74177; 80048; 80076; 81001; 82947; 83605; 83690; 83880; 84484; 85027; 85610; 85730; 86850; 86900; 86901; 86920; 87641; 93005; 96361; 96365; 96375; C9113; J0690; J1170; J2060; J2270; J2405; J2704; J3010; J7030; J7120; Q9967; 97116; 99285-25

== ENCOUNTER 2019-01-13 21:26 | Inpatient (IN) | payer MEDICARE, OTHER ==
[~2019-01-13] VITALS: Ht 162.6 cm; Wt 65.5 kg
[2019-01-13 12:35] VITALS: BP 86/57
[~2019-01-13 21:26] MED LIST changes: -AMLO10TA2 PO; +AMLO10TA8 PO; -ESCI10TA PO; +ESCITALOPRAM OX10 MG PO; +HYDR-2145 PO; -HYDR-2762 PO; +HYDR-2765 PO; -HYDR25TA9 PO; +LORA-434 PO; +METF500T16 PO; -METF500T4 PO; -METO50TA2 PO; +METO50TA6 PO; -PANT40TA5 PO; +PANT40TA77 PO; +SIMV10TA15 PO; -SIMV10TA3 PO; +TRAZ-118 PO; -TRAZ50TA15 PO
[2019-01-13 21:57] LABS: BASO # 0.1 x10^3/uL (0.0-0.2); BASO % 1 % (0-3); EOS # 0.1 x10^3/uL (0.0-0.7); EOS % 0 % (0-3); HEMATOCRIT 34.6 % (36.0-47.0); HEMOGLOBIN 11.5 g/dL (12.0-15.5); LYMPH # 4.3 x10^3/uL (1.0-4.8); LYMPH % 36 % (24-48); MEAN CORPUSCULAR HEMOGLOBIN 30 pg (25-35); MEAN CORPUSCULAR HGB CONC 33 g/dL (31-37); MEAN CORPUSCULAR VOLUME 91 fL (79-100); MONO # 0.9 x10^3/uL (0.0-1.1); MONO % 8 % (0-9); NEUT # 6.5 x10^3/uL (1.8-7.7); NEUT % 55 % (31-73); PLATELET COUNT 389 x10^3/uL (140-400); RED CELL DISTRIBUTION WIDTH 14.2 % (11.5-14.5); WHITE BLOOD COUNT 11.9 x10^3/uL (4.0-11.0)
[2019-01-13 22:06] LABS: CALCIUM 8.8 mg/dL (8.5-10.1); CREATININE 1.4 mg/dL (0.6-1.0); POTASSIUM 3.7 mmol/L (3.5-5.1)
[2019-01-13 22:13] LABS: ALBUMIN 3.6 g/dL (3.4-5.0); ALBUMIN/GLOBULIN RATIO 0.9 (1.0-1.7); MAGNESIUM 1.6 mg/dL (1.8-2.4); TOTAL BILIRUBIN 0.6 mg/dL (0.2-1.0); TOTAL PROTEIN 7.6 g/dL (6.4-8.2)
[2019-01-13] MEDS ORDERED: IV NORMAL SALINE 1000ML BAG 1,000 ML IV SCH (22:15)
[2019-01-13] MEDS ORDERED: ASPIRIN CHEWABLE 81 MG TABLET. PO ONE (22:15)
[2019-01-13] MEDS ORDERED: ONDANSETRON PF 4 MG/2 ML VIAL. IV ONE (22:15)
--- NOTE | 2019-01-13 23:33 | RAD ---
PORTABLE CHEST 1V History: Chest pain Comparison: April 11, 2016 Findings: No consolidation or pleural effusion. Normal heart size. compliance monitor device noted. Impression: 1. No acute cardiopulmonary process. Electronically signed by: Benny Garvin DO (01/13/2019 11:30 PM) [id number]
--- NOTE | 2019-01-13 23:43 | PHYS DOC ---
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 She states the pain is midsternal right over the area where patient had implant placed in her chest. She states that pain is worsened with exertion but also states that the area is tender to touch. She rates pain at a 7 out of 10. She states that nothing is improving her symptoms. She states that she has had some nausea but no vomiting. She denies any diaphoresis.[] Review of Systems Review of Systems Constitutional: Denies fever or chills [] Respiratory: Denies cough or shortness of breath [] Cardiovascular: No additional information not addressed in HPI [] GI: Denies abdominal pain, vomiting or diarrhea [] Integument: Denies rash or skin lesions [] Neurologic: Denies headache, focal weakness or sensory changes [] All other systems were reviewed and found to be within normal limits, except as documented in this note. Current Medications Current Medications Current Medications Medications (Trade) Dose Ordered Sig/[facility] Start Time Stop Time Status Last Admin Dose Admin Aspirin (Children'S Aspirin) 324 mg 1X ONCE 01/13/19 22:15 01/13/19 22:16 DC Ondansetron HCl (Zofran) 4 mg 1X ONCE 01/13/19 22:15 01/13/19 22:16 DC 01/13/19 22:29 4 MG Sodium Chloride 1,000 ml @ 1,000 mls/hr Q1H 01/13/19 22:15 01/13/19 23:14 DC 01/13/19 22:29 1,000 MLS/HR Allergies Allergies Allergies Coded Allergies Type Severity Reaction Last Updated Verified No Known Drug Allergies 04/12/16 No Physical Exam Physical Exam Constitutional: Well developed, well nourished, no acute distress, non-toxic appearance. [] HENT: Normocephalic, atraumatic, bilateral external ears normal, oropharynx moist, no oral exudates, nose normal. [] Eyes: PERRLA, EOMI, conjunctiva normal, no discharge. [] Neck: Normal range of motion, no tenderness, supple. [] Cardiovascular: The rate and rhythm[] Lungs & Thorax: Bilateral breath sounds clear to auscultation [] Abdomen: Bowel sounds normal, soft, no tenderness. [] Skin: Warm, dry, no erythema, no rash. [] Extremities: No tenderness, no cyanosis, no clubbing, ROM intact. [] Neurologic: Alert and oriented X 3, no focal deficits noted. [] Current Patient Data Vital Signs Vital Signs Date Time Temp Pulse Resp B/P (MAP) Pulse Ox O2 Delivery O2 Flow Rate FiO2 01/13/19 21:26 97.7 84 20 96/55 (69) 98 Room Air 97.7 Lab Values Laboratory Tests Test 01/13/19 21:45 White Blood Count 11.9 x10^3/uL (4.0-11.0) H Red Blood Count 3.80 x10^6/uL (3.50-5.40) Hemoglobin 11.5 g/dL (12.0-15.5) L Hematocrit 34.6 % (36.0-47.0) L Mean Corpuscular Volume 91 fL (79-100) Mean Corpuscular Hemoglobin 30 pg (25-35) Mean Corpuscular Hemoglobin Concent 33 g/dL (31-37) Red Cell Distribution Width 14.2 % (11.5-14.5) Platelet Count 389 x10^3/uL (140-400) Neutrophils (%) (Auto) 55 % (31-73) Lymphocytes (%) (Auto) 36 % (24-48) Monocytes (%) (Auto) 8 % (0-9) Eosinophils (%) (Auto) 0 % (0-3) Basophils (%) (Auto) 1 % (0-3) Neutrophils # (Auto) 6.5 x10^3/uL (1.8-7.7) Lymphocytes # (Auto) 4.3 x10^3/uL (1.0-4.8) Monocytes # (Auto) 0.9 x10^3/uL (0.0-1.1) Eosinophils # (Auto) 0.1 x10^3/uL (0.0-0.7) Basophils # (Auto) 0.1 x10^3/uL (0.0-0.2) Sodium Level 139 mmol/L (136-145) Potassium Level 3.7 mmol/L (3.5-5.1) Chloride Level 103 mmol/L (98-107) Carbon Dioxide Level 21 mmol/L (21-32) Anion Gap 15 (6-14) H Blood Urea Nitrogen 23 mg/dL (7-20) H Creatinine 1.4 mg/dL (0.6-1.0) H Estimated GFR (Cockcroft-Gault) 46.0 BUN/Creatinine Ratio 16 (6-20) Glucose Level 143 mg/dL (70-99) H Calcium Level 8.8 mg/dL (8.5-10.1) Magnesium Level 1.6 mg/dL (1.8-2.4) L Total Bilirubin 0.6 mg/dL (0.2-1.0) Aspartate Amino Transferase (AST) 31 U/L (15-37) Alanine Aminotransferase (ALT) 26 U/L (14-59) Alkaline Phosphatase 131 U/L (46-116) H Troponin I Quantitative < 0.017 ng/mL (0.000-0.055) [id number] Natriuretic Peptide 78 pg/mL (0-124) Total Protein 7.6 g/dL (6.4-8.2) Albumin 3.6 g/dL (3.4-5.0) Albumin/Globulin Ratio 0.9 (1.0-1.7) L Lipase 47 U/L (73-393) L Ethyl Alcohol Level 217 mg/dL (0-10) H Laboratory Tests 01/13/19 21:45 Laboratory Tests 01/13/19 21:45 EKG EKG [] Interpretation Time: EKG demonstrates normal sinus rhythm with rate of 85. Radiology/Procedures Radiology/Procedures [] Impressions: Chest x-ray demonstrates no acute process. Course & Med Decision Making Course & Med Decision Making Pertinent Labs and Imaging studies reviewed. (See chart for details) [] Dragon Disclaimer Dragon Disclaimer This electronic medical record was generated, in whole or in part, using a voice recognition dictation system. Departure Departure Impression: Primary Impression: Chest pain Additional Impression: Alcohol intoxication Disposition: ADMITTED INPATIENT Admitting Physician: LIAT (Dr. Doran) Condition: STABLE Referrals: UNKNOWN PCP NAME (PCP) Problem Qualifiers Primary Impression: Chest pain Chest pain type: unspecified Qualified Codes: R07.9 - Chest pain, unspecified Additional Impression: Alcohol intoxication Complication of substance-induced condition: uncomplicated Qualified Codes: F10.920 - Alcohol use, unspecified with intoxication, uncomplicated BARBARA CAIN Jr. DO Jan 13, 2019 23:43
[2019-01-13 23:45] LABS: BILIRUBIN,URINE NEGATIVE (NEG); COLOR,URINE YELLOW; NITRITE,URINE NEGATIVE (NEG); PH,URINE 5.5; PROTEIN,URINE NEGATIVE (NEG-TRACE); UROBILINOGEN,URINE 0.2 mg/dL (0.2 mg/dL)
[2019-01-13] MEDS ORDERED: ONDANSETRON PF 4 MG/2 ML VIAL. IV PRN (23:45)
[2019-01-13] MEDS ORDERED: NITROGLYCERIN SUBLINGUAL 0.4 MG BOTTLE OF 25. SL PRN (23:45)
[2019-01-13 23:47] LABS: CLARITY,URINE CLEAR; SQUAMOUS EPITHELIAL CELL,UR FEW /LPF
[2019-01-13 23:48] LABS: BACTERIA,URINE FEW /HPF (0-FEW); RBC,URINE 0 /HPF (0-2); WBC,URINE OCC /HPF (0-4)
[2019-01-14] MEDS ORDERED: MULTIVIT INFUSN,ADULT 4,VIT K 10 ML, THIAMINE INJ 100 MG, FOLIC ACID INJ 1 MG in IV NOR... IV ONE (01:00)
[2019-01-14 03:00] VITALS: BP 103/40
[2019-01-14] MEDS: ACETAMINOPHEN 325 MG TABLET. PO PRN ×2 (05:29→14:53)
--- NOTE | 2019-01-14 06:18 | EKG ---
[facility] [address] [place] [address] Test Date: 2019-01-13 Test Time: 21:36:26 Pat Name: KRISTINE MEJIA Department: Room: Gender: F Nursing Faculty: : 1955 Requested By: BARBARA CAIN Order Number: [id number] Reading MD: Measurements Intervals [place] Rate: 85 P: 82 OK: 154 QRS: -9 QRSD: 84 T: 42 QT: 390 QTc: 464 Interpretive Statements SINUS RHYTHM LEFT ATRIAL ABNORMALITY LEFTWARD AXIS ABNORMAL ECG RI6.01 No previous ECG available for comparison
[2019-01-14 07:00] VITALS: BP 103/40
[2019-01-14] MEDS ORDERED: chlordiazePOXIDE HCL 25 MG CAPSULE PO PRN (08:45)
[2019-01-14] MEDS ORDERED: HALOPERIDOL LACTATE 5 MG/ML VIAL. IVP PRN (08:45)
[2019-01-14] MEDS: diphenhydrAMINE 50 MG/ML VIAL IVP PRN ×2 (09:35→14:54)
[2019-01-14] MEDS ORDERED: FLU VAX QS 2019-20 (36MOS+)/PF 0.5 ML SYRINGE. VAX IM ONE (10:00)
--- NOTE | 2019-01-14 10:14 | PDOC2 ---
MAIN PALACIOS SENIOR RISK ANALYST 01/14/19 1014: CARDIAC CONSULT DATE OF CONSULT Date of Consult DATE: 01/14/19 TIME: 10:08 REASON FOR CONSULT Reason for Consult: Chest pain REFERRING PHYSICIAN Referring Physician: Dr. Hdz SOURCE Source: Chart review, Patient HISTORY OF PRESENT ILLNESS HISTORY OF PRESENT ILLNESS This is a 63 yo female who presented secondary to chest pain. Patient is from [place]. Is here visiting family. Has a history of stroke 4 months. Had loop recorder placed at that time. Has had pain near the loop recorder site since that point. Yesterday, began having pain in her left chest that radiated to her left shoulder. [place] like she could pass out. Pain improved with rest. Got up and began walking and pain returned. Describes as stabbing and sharp in nature. Again felt weak like she could pass out and slightly short of breath. No diaphoresis, palpitations, or diaphoresis although does report recent hot flashes that seems to "take my energy away." Pain persisted yesterday evening so she called EMS. Is somewhat of a poor historian. Has a history of alcohol abuse. Had decreased use since recent stroke. Normally drinks 3 beers per day, but has had much more to drink in the last week or so as she has been visiting family. Reports additional history of CAD. Had cath about a year ago in [place] and was told she had an artery that was completely blocked. PAST MEDICAL HISTORY Cardiovascular: CAD, HTN, Hyperlipidemia CENTRAL NERVOUS SYSTEM: CVA GI: GERD Psych: Addictions (ETOH ), Depression Musculoskeletal: Osteoarthritis Endocrine: Diabetes PAST SURGICAL HISTORY Past Surgical History: Cholecystectomy, Hysterectomy, Other (loop recorder implant ) FAMILY HISTORY Family History: Heart Disease, High Cholestrol, Hypertension SOCIAL HISTORY Smoke: No ALCOHOL: other (3 beers per day) CURRENT MEDICATIONS CURRENT MEDICATIONS Current Medications Medications (Trade) Dose Ordered Sig/Jose Route PRN Reason Start Time Stop Time Status Last Admin Dose Admin Sodium Chloride 1,000 ml @ 1,000 mls/hr Q1H IV 01/13/19 22:15 01/13/19 23:14 DC 01/13/19 22:29 Ondansetron HCl (Zofran) 4 mg 1X ONCE IV 01/13/19 22:15 01/13/19 22:16 DC 01/13/19 22:29 Ondansetron HCl (Zofran) 4 mg PRN Q8HRS PRN IV NAUSEA/VOMITING 1ST CHOICE 01/13/19 23:45 01/14/19 23:44 01/14/19 09:36 Acetaminophen (Tylenol) 650 mg PRN Q4HRS PRN PO FEVER 01/13/19 23:45 01/14/19 23:44 01/14/19 05:29 Multivitamins 10 ml/Thiamine HCl 100 mg/Folic Acid 1 mg/Sodium Chloride 1,011.2 ml @ 1,000.088 mls/hr 1X ONCE IV 01/14/19 01:00 01/14/19 02:00 DC 01/14/19 00:42 Diphenhydramine HCl (Benadryl) 25 mg PRN Q15MIN PRN IVP EPS symptoms 2'Haldol admin 01/14/19 08:45 01/14/19 09:35 ALLERGIES ALLERGIES: Coded Allergies: No Known Drug Allergies (Unverified , 04/12/16) ROS Review of System 14 point ROS conducted with pertinent positives noted above in HPI. PHYSICAL EXAM General: Alert, Oriented X3, Cooperative, No acute distress HEENT: Atraumatic, Mucous membr. moist/pink Lungs: Clear to auscultation, Other (significant left chest tenderness upon palpiation) Heart: Regular rate, Normal S1, Normal S2, Other (2/6 systolic murmur ) Abdomen: Soft, No tenderness Extremities: No edema, Normal pulses Skin: No breakdown, No significant lesion Neuro: Normal speech, Sensation intact Psych/Mental Status: Mental status NL, Mood NL MUSCULOSKELETAL: Osteoarthritic changes both hands VITALS/I&O VITALS/I&O: Vital Signs Date Time Temp Pulse Resp B/P (MAP) Pulse Ox O2 Delivery O2 Flow Rate FiO2 01/14/19 08:00 Room Air 01/14/19 07:00 97.5 86 103/40 (61) 93 97.5 01/14/19 03:00 16 98.0 I & O 01/13/19 01/13/19 01/14/19 15:00 23:00 07:00 Output Total 300 ml Balance -300 ml LABS Lab: Laboratory Tests Test 01/13/19 21:45 01/13/19 23:35 01/14/19 02:45 01/14/19 06:20 White Blood Count 11.9 x10^3/uL (4.0-11.0) H Red Blood Count 3.80 x10^6/uL (3.50-5.40) Hemoglobin 11.5 g/dL (12.0-15.5) L Hematocrit 34.6 % (36.0-47.0) L Mean Corpuscular Volume 91 fL (79-100) Mean Corpuscular Hemoglobin 30 pg (25-35) Mean Corpuscular Hemoglobin Concent 33 g/dL (31-37) Red Cell Distribution Width 14.2 % (11.5-14.5) Platelet Count 389 x10^3/uL (140-400) Neutrophils (%) (Auto) 55 % (31-73) Lymphocytes (%) (Auto) 36 % (24-48) Monocytes (%) (Auto) 8 % (0-9) Eosinophils (%) (Auto) 0 % (0-3) Basophils (%) (Auto) 1 % (0-3) Neutrophils # (Auto) 6.5 x10^3/uL (1.8-7.7) Lymphocytes # (Auto) 4.3 x10^3/uL (1.0-4.8) Monocytes # (Auto) 0.9 x10^3/uL (0.0-1.1) Eosinophils # (Auto) 0.1 x10^3/uL (0.0-0.7) Basophils # (Auto) 0.1 x10^3/uL (0.0-0.2) Sodium Level 139 mmol/L (136-145) Potassium Level 3.7 mmol/L (3.5-5.1) Chloride Level 103 mmol/L (98-107) Carbon Dioxide Level 21 mmol/L (21-32) Anion Gap 15 (6-14) H Blood Urea Nitrogen 23 mg/dL (7-20) H Creatinine 1.4 mg/dL (0.6-1.0) H Estimated GFR (Cockcroft-Gault) 46.0 BUN/Creatinine Ratio 16 (6-20) Glucose Level 143 mg/dL (70-99) H Calcium Level 8.8 mg/dL (8.5-10.1) Magnesium Level 1.6 mg/dL (1.8-2.4) L Total Bilirubin 0.6 mg/dL (0.2-1.0) Aspartate Amino Transferase (AST) 31 U/L (15-37) Alanine Aminotransferase (ALT) 26 U/L (14-59) Alkaline Phosphatase 131 U/L (46-116) H Troponin I Quantitative < 0.017 ng/mL (0.000-0.055) < 0.017 ng/mL (0.000-0.055) < 0.017 ng/mL (0.000-0.055) CD-Zvy-W-Type Natriuretic Peptide 78 pg/mL (0-124) Total Protein 7.6 g/dL (6.4-8.2) Albumin 3.6 g/dL (3.4-5.0) Albumin/Globulin Ratio 0.9 (1.0-1.7) L Lipase 47 U/L (73-393) L Ethyl Alcohol Level 217 mg/dL (0-10) H Urine Collection Type Unknown Urine Color Yellow Urine Clarity Clear Urine pH 5.5 Urine Specific [place] <=1.005 Urine Protein Negative mg/dL (NEG-TRACE) Urine Glucose (UA) Negative mg/dL (NEG) Urine Ketones (Stick) Negative mg/dL (NEG) Urine Blood Negative (NEG) Urine Nitrite Negative (NEG) Urine Bilirubin Negative (NEG) Urine Urobilinogen Dipstick 0.2 mg/dL (0.2 mg/dL) Urine Leukocyte Esterase Negative (NEG) Urine RBC 0 /HPF (0-2) Urine WBC Occ /HPF (0-4) Urine Squamous Epithelial Cells Few /LPF Urine Bacteria Few /HPF (0-FEW) Urine Mucus Slight /LPF Laboratory Tests 01/13/19 21:45 Laboratory Tests 01/13/19 21:45 ECHOCARDIOGRAM ECHOCARDIOGRAM <Conclusion> The Ejection Fraction is 55-60%. There is normal LV segmental wall motion. Doppler and Color Flow revealed mild aortic regurgitation. The ascending aorta is mildly dilated at 3.7 cm. DATE: 03/01/16 1358 ASSESSMENT/PLAN ASSESSMENT/PLAN 1. Chest pain, mixed features. AMI ruled out. 2. CAD; reportedly HYDROBLASTER noted per cath last year in [place]. Difficult historian 3. Hypertension; low normotensive 4. Hyperlipidemia; statin 5. Diabetes, II; as per PCP 6. JASON 7. Hypokalemia 8. ETOH abuse 9. Recent CVA; s/p loop recorder Recommendations ASA, statin, BB therapy lipids Echo to assess LV systolic function Obtain cardiac records, including most recent cardiac cath, from [place]. Consider Imdur if blood pressure would tolerate. Further pending review of above. COREY MIX MD 01/14/196: CARDIAC CONSULT ASSESSMENT/PLAN ASSESSMENT/PLAN Patient seen and examined. Agree with HANDS ASSEMBLER's assessment and plan. CP with atypical features ND ruled out 2D echo showed normal LVF CAD clinically stable We will obtain records from primary sales representative adding machines Thank you for your consultation MAIN PALACIOS APRN Jan 14, 2019 10:14 COREY MIX MD Jan 14, 2019 19:36
--- NOTE | 2019-01-14 10:59 | NUR ---
SS following for discharge planning. SS reviewed pt chart. Pt is from home and is currently on room air. SS will continue to follow for discharge planning.
[2019-01-14 11:00] VITALS: BP 137/73
[2019-01-14 11:00] LABS: CHOLESTEROL/HDL RATIO 1.8
--- NOTE | 2019-01-14 11:19 | HP ---
ADMIT DATE: 01/14/2019 CHIEF COMPLAINT: Chest pain. HISTORY OF PRESENT ILLNESS: The patient is a pleasant middle-aged female who we think drinks pretty heavily. She presents with chest pain with mixed features described as pressure-like sensation with some burning as well, rated at 7/10, has been occurring for several days. Ygdt-jdt-xonskyo meds did not seem to help. It is midsternal. I discussed the case with the ER physician. We are going to admit the patient and give her a full cardiac workup and alcohol withdrawal protocol. PAST MEDICAL HISTORY: AFib, stroke, diabetes, hypertension, esophageal varices, alcohol abuse, indwelling heart monitor, left knee surgery. ALLERGIES: None. FAMILY HISTORY: Coronary artery disease. SOCIAL HISTORY: We think she drinks and smokes. No drugs. MEDICATIONS: Reviewed, please refer to the MRAD. REVIEW OF SYSTEMS: GENERAL: No history of weight change, weakness or fevers. SKIN: No bruising, hair changes or rashes. EYES: No blurred, double or loss of vision. NOSE AND THROAT: No history of nosebleeds, hoarseness or sore throat. HEART: She complains of chest pain. LUNGS: Denies cough, hemoptysis, wheezing or shortness of breath. GASTROINTESTINAL: Denies changes in appetite, nausea, vomiting, diarrhea or constipation. GENITOURINARY: She complained of some rectal bleeding yesterday. NEUROLOGIC: Denies history of numbness, tingling, tremor or weakness. PSYCHIATRIC: No history of panic, anxiety or depression. ENDOCRINE: No history of heat or cold intolerance, polyuria or polydipsia. EXTREMITIES: Denies muscle weakness, joint pain, pain on walking or stiffness. PHYSICAL EXAMINATION: VITALS: Within normal limits and are stable. GENERAL: No apparent distress. Alert and oriented. HEENT: Head is normocephalic, atraumatic, pupils were equally round and reactive to light and accommodation. NECK: Supple, no JVD, no thyromegaly was noted. LUNGS: Clear to auscultation in all lung cavazos without rhonchi or wheezing. HEART: RRR, S1, S2 present. Peripheral pulses intact, no obvious murmurs were noted. ABDOMEN: Soft, nontender. Positive bowel sounds no organomegaly, normal bowel sounds. EXTREMITIES: Without any cyanosis, clubbing, or edema. Pedal pulses intact, Homans sign is negative. NEUROLOGIC: She is slightly confused and having some shaking. PSYCHIATRIC: Normal affect, normal mood. Stable. SKIN: No ulcerations or rashes, good skin turgor, no jaundice. VASCULAR: Good capillary refill, neurovascular bundle appears to be intact. LABORATORY DATA: White count 11.9, hemoglobin 11.5, platelets 389. Electrolytes pending. Troponin is 0. Urinalysis negative. Alcohol level 217. ASSESSMENT AND PLAN: Chest pain and alcohol withdrawal. The patient will be admitted. We will check serial enzymes, serial EKGs, echocardiogram. Consult Cardiology. Regarding the rectal bleeding, we will consult GI. Alcohol withdrawal protocol. DVT prophylaxis. Full code. Prognosis guarded. CHRISTA TORRES DO DR: RUBIO/isaura JOB#: [id number] / [id number]
[2019-01-14] MEDS ORDERED: SIMV80TA17 PO (11:27)
[2019-01-14] MEDS ORDERED: METO-239 PO (11:27)
[2019-01-14] MEDS ORDERED: METOPROLOL SUCC 24HR ER 25 MG TAB.ER.24H. PO SCH (12:00)
--- NOTE | 2019-01-14 13:07 | PDOC2 ---
GI CONSULT Reason For Consult: rectal bleeding yesterday HPI: HPI: 63 y/o female w/ sharp left-sided chest pain radiating to left shoulder (worse w/ movement) and increased fatigue. H/o CAD and CVA on ASA 81mg QD. Additionally, tells me after urinating yesterday, saw blood with wiping. Did not have a bowel movement yesterday. Per nurse, had a large stool this morning without blood. Might have had some nausea. Had some lower abdominal discomfort that resolved w/ stooling. No reflux/heartburn, dysphagia, vomiting, diarrhea, constipation, melena, change in appetite, or weight loss. Previous EGDs here w/ M-W tear/clipping and erosive gastritis. Previous colonoscopy at (in ~2012) was reportedly normal. Outpt colonoscopy recommended in the past re: anemia. S/p cholecystectomy. Fatty liver on past imaging. Might have had a pancreas problem once. Lives in [place] now, here visiting family but lost her wallet. PMH: PMH: CAD, HTN, HLD, DM, CVA, OA, DOES NOT HAVE ESOPHAGEAL VARICES left knee surgery, left shoulder surgery, jaw surgery, cholecystectomy, partial hysterectomy FH: Family History: Cancer (breast) Social History: Smoke: No ALCOHOL: other (h/o heavy alcohol use in the past, won't quantify now) Drugs: None ROS: GEN: +fatigue HEENT: Denies blurred vision, sore throat CV: +chest pain RESP: Denies shortness of air, cough GI: Per HPI : Denies hematuria, dysuria ENDO: Denies weight changes NEURO: Denies confusion, dizziness MSK: Denies weakness, joint pain/swelling SKIN: Denies jaundice, pruritus Vitals: Vitals: Vital Signs Date Time Temp Pulse Resp B/P (MAP) Pulse Ox O2 Delivery O2 Flow Rate FiO2 01/14/19 11:00 98.9 99 20 137/73 (94) 99 Room Air 98.9 01/14/19 03:00 98.0 Labs: Labs: Laboratory Tests Test 01/13/19 21:45 01/13/19 23:35 01/14/19 02:45 01/14/19 06:20 White Blood Count 11.9 x10^3/uL (4.0-11.0) Red Blood Count 3.80 x10^6/uL (3.50-5.40) Hemoglobin 11.5 g/dL (12.0-15.5) Hematocrit 34.6 % (36.0-47.0) Mean Corpuscular Volume 91 fL (79-100) Mean Corpuscular Hemoglobin 30 pg (25-35) Mean Corpuscular Hemoglobin Concent 33 g/dL (31-37) Red Cell Distribution Width 14.2 % (11.5-14.5) Platelet Count 389 x10^3/uL (140-400) Neutrophils (%) (Auto) 55 % (31-73) Lymphocytes (%) (Auto) 36 % (24-48) Monocytes (%) (Auto) 8 % (0-9) Eosinophils (%) (Auto) 0 % (0-3) Basophils (%) (Auto) 1 % (0-3) Neutrophils # (Auto) 6.5 x10^3/uL (1.8-7.7) Lymphocytes # (Auto) 4.3 x10^3/uL (1.0-4.8) Monocytes # (Auto) 0.9 x10^3/uL (0.0-1.1) Eosinophils # (Auto) 0.1 x10^3/uL (0.0-0.7) Basophils # (Auto) 0.1 x10^3/uL (0.0-0.2) Sodium Level 139 mmol/L (136-145) Potassium Level 3.7 mmol/L (3.5-5.1) Chloride Level 103 mmol/L (98-107) Carbon Dioxide Level 21 mmol/L (21-32) Anion Gap 15 (6-14) Blood Urea Nitrogen 23 mg/dL (7-20) Creatinine 1.4 mg/dL (0.6-1.0) Estimated GFR (Cockcroft-Gault) 46.0 BUN/Creatinine Ratio 16 (6-20) Glucose Level 143 mg/dL (70-99) Calcium Level 8.8 mg/dL (8.5-10.1) Magnesium Level 1.6 mg/dL (1.8-2.4) Total Bilirubin 0.6 mg/dL (0.2-1.0) Aspartate Amino Transf (AST/SGOT) 31 U/L (15-37) Alanine Aminotransferase (ALT/SGPT) 26 U/L (14-59) Alkaline Phosphatase 131 U/L (46-116) Troponin I Quantitative < 0.017 ng/mL (0.000-0.055) < 0.017 ng/mL (0.000-0.055) < 0.017 ng/mL (0.000-0.055) WP-Wpr-H-Type Natriuretic Peptide 78 pg/mL (0-124) Total Protein 7.6 g/dL (6.4-8.2) Albumin 3.6 g/dL (3.4-5.0) Albumin/Globulin Ratio 0.9 (1.0-1.7) Lipase 47 U/L (73-393) Ethyl Alcohol Level 217 mg/dL (0-10) Urine Collection Type Unknown Urine Color Yellow Urine Clarity Clear Urine pH 5.5 Urine Specific [place] <=1.005 Urine Protein Negative mg/dL (NEG-TRACE) Urine Glucose (UA) Negative mg/dL (NEG) Urine Ketones (Stick) Negative mg/dL (NEG) Urine Blood Negative (NEG) Urine Nitrite Negative (NEG) Urine Bilirubin Negative (NEG) Urine Urobilinogen Dipstick 0.2 mg/dL (0.2 mg/dL) Urine Leukocyte Esterase Negative (NEG) Urine RBC 0 /HPF (0-2) Urine WBC Occ /HPF (0-4) Urine Squamous Epithelial Cells Few /LPF Urine Bacteria Few /HPF (0-FEW) Urine Mucus Slight /LPF Triglycerides Level 28 mg/dL (0-150) Cholesterol Level 121 mg/dL (0-200) LDL Cholesterol, Calculated 49 mg/dL (0-100) VLDL Cholesterol, Calculated 6 mg/dL (0-40) Non-HDL Cholesterol Calculated 55 mg/dL (0-129) HDL Cholesterol 66 mg/dL (40-60) Cholesterol/HDL Ratio 1.8 Allergies: Coded Allergies: No Known Drug Allergies (Unverified , 04/12/16) Medications: Current Medications Medications (Trade) Dose Ordered Sig/Jose Route PRN Reason Start Time Stop Time Status Last Admin Dose Admin Sodium Chloride 1,000 ml @ 1,000 mls/hr Q1H IV 01/13/19 22:15 01/13/19 23:14 DC 01/13/19 22:29 Ondansetron HCl (Zofran) 4 mg 1X ONCE IV 01/13/19 22:15 01/13/19 22:16 DC 01/13/19 22:29 Ondansetron HCl (Zofran) 4 mg PRN Q8HRS PRN IV NAUSEA/VOMITING 1ST CHOICE 01/13/19 23:45 01/14/19 23:44 01/14/19 09:36 Acetaminophen (Tylenol) 650 mg PRN Q4HRS PRN PO FEVER 01/13/19 23:45 01/14/19 23:44 01/14/19 05:29 Multivitamins 10 ml/Thiamine HCl 100 mg/Folic Acid 1 mg/Sodium Chloride 1,011.2 ml @ 1,000.088 mls/hr 1X ONCE IV 01/14/19 01:00 01/14/19 02:00 DC 01/14/19 00:42 Diphenhydramine HCl (Benadryl) 25 mg PRN Q15MIN PRN IVP EPS symptoms 2'Haldol admin 01/14/19 08:45 01/14/19 09:35 Imaging: Imaging: CXR Impression: 1. No acute cardiopulmonary process. PE: GEN: NAD HEENT: Atraumatic, PERRL LUNGS: CTAB HEART: RRR - chest wall quite TTP ABD: NABS, S/ND/NT EXTREMITY: No edema SKIN: No rashes, no jaundice NEURO/PSYCH: A & O 3, flat A/P: A/P: Chest pain, fatigue Blood on toilet tissue after urinating Chronic anemia - stable compared to last available labs in 2016 H/o M-W tear CRC screen - reportedly normal in the past at [facility] S/p cholecystectomy Fatty liver H/o CAD and CVA on ASA +alcohol -- Unclear this is GI bleeding - describes blood w/ wiping after urinating, nurse reports normal stool today. Observe from GI standpoint. Check anemia parameters for completeness. Outpt colonoscopy recommended in the past - could pursue when home in [place]. STARR CASILLAS Jan 14, 2019 13:07
[2019-01-14 15:00] VITALS: BP 157/71
--- NOTE | 2019-01-14 15:25 | CARD ---
MR#: [id number] Date of Study: 01/14/2019 Ordering Physician: MAIN PALACIOS, Referring Physician: MAIN PALACIOS, Oneil: Bing Penn APPROVED REPORT EXAM: Two-dimensional and M-mode echocardiogram with Doppler and color Doppler. Other Information Quality : AverageHR: 103bpm INDICATION Chest Pain 2D DIMENSIONS IVSd1.1 (0.7-1.1cm)LVDd4.2 (3.9-5.9cm) PWd0.9 (0.7-1.1cm)LVDs2.7 (2.5-4.0cm) FS (%) 36.2 %SV51.4 ml LVEF(%)66.3 (>50%) LEFT VENTRICLE The left ventricle is normal size. There is normal left ventricular wall thickness. The left ventricu lar systolic function is normal and the ejection fraction is within normal range. The Ejection Fracti on is 60-65%. There is normal LV segmental wall motion. GREAT VESSELS The aortic root is normal in size. PERICARDIAL EFFUSION There is no evidence of significant pericardial effusion. Critical Notification Critical Value: No <Conclusion> The left ventricular systolic function is normal and the ejection fraction is within normal range. Th e Ejection Fraction is 60-65%. There is normal LV segmental wall motion. Limited echo for wall motion and EF only. Cannot rule out aortic valve stenosis. Signed by : Tor Card, Electronically Approved : 01/14/2019 15:24:43
[2019-01-14] MEDS ORDERED: PANTOPRAZOLE 40 MG TABLET.DR. PO SCH (16:30)
--- NOTE | 2019-01-14 17:30 | NUR ---
Discharged patient to home. Discharge instructions given. PIV and heart monitor removed. Escorted patient into a z-trip cab.
[2019-01-14] MEDS ORDERED: ATORVASTATIN CALCIUM 40 MG TABLET. PO SCH (21:00)
[2019-01-15] MEDS ORDERED: ASPIRIN ENTERIC COATED 81 MG TABLET.DR. PO SCH (08:00)
[2019-01-15] MEDS ORDERED: METOPROLOL TART IMMED RELEASE 50 MG TABLET. PO SCH (09:00)
[2019-01-15] MEDS ORDERED: MULTIVIT INFUSN,ADULT 4,VIT K 10 ML, THIAMINE INJ 100 MG, FOLIC ACID INJ 1 MG in IV NOR... IV SCH (09:00)
--- NOTE | 2019-01-15 18:40 | DS ---
DATE OF DISCHARGE: 01/14/2019 ADMISSION DIAGNOSES: Chest pain and alcohol abuse. DISCHARGE DIAGNOSES: Resolving chest pain; resolving acute on chronic alcohol abuse; rectal bleeding which was probably secondary to a hemorrhoid. HOSPITAL COURSE: The patient is a pleasant 63-year-old female, who presented with chest pain. She had been drinking quite a bit and has a known history of alcoholism. She was admitted. We consulted Cardiology and Gastroenterology because she also had some rectal bleeding. Cardiac workup was negative. Her gastrointestinal bleed stopped. Her hemoglobin remained stable. We gave her alcohol withdrawal protocol. Yesterday when I saw and examined, she was doing well. We discharged to home with close outpatient followup. DISPOSITION: Home. ACTIVITY: As tolerated. DIET: Low sodium. MEDICATIONS: Please see MRAD. TOTAL TIME: 33 minutes. CHRISTA TORRES DO DR: RUBIO/isaura JOB#: [id number] / [id number]
[2019-01-19] MEDS ORDERED: THIAMINE 100 MG TABLET. PO SCH (09:00)
[2019-01-19] MEDS ORDERED: MULTIVITAMIN with MINERAL TABLET. PO SCH (09:00)
[2019-01-19] MEDS ORDERED: FOLIC ACID 1 MG TABLET. PO SCH (09:00)
== END 2019-01-14 17:36 | disposition home or self-care (01) | DRG 378 ==
LOC: ER 21:26 → 2 SOUTH 23:59
PROVIDERS: ADMIT Internal Medicine; ATTEND Internal Medicine
DX: K62.5 Hemorrhage of anus and rectum (principal); F10.239 Alcohol dependence with withdrawal, unspecified; N17.9 Acute kidney failure, unspecified; I85.00 Esophageal varices without bleeding; R07.89 Other chest pain; K64.9 Unspecified hemorrhoids; E11.9 Type 2 diabetes mellitus without complications; I48.91 Unspecified atrial fibrillation; I10 Essential (primary) hypertension; F10.229 Alcohol dependence with intoxication, unspecified; E78.5 Hyperlipidemia, unspecified; F32.9 Major depressive disorder, single episode, unspecified; M19.90 Unspecified osteoarthritis, unspecified site; K21.9 Gastro-esophageal reflux disease without esophagitis; I25.10 Atherosclerotic heart disease of native coronary artery without angina pectoris; K76.0 Fatty (change of) liver, not elsewhere classified; E87.6 Hypokalemia; Z90.711 Acquired absence of uterus with remaining cervical stump; Z82.49 Family history of ischemic heart disease and other diseases of the circulatory system; Z86.73 Personal history of transient ischemic attack (TIA), and cerebral infarction without residual deficits; Z90.49 Acquired absence of other specified parts of digestive tract; Z80.3 Family history of malignant neoplasm of breast
CPT/HCPCS: 36415; 71045; 80053; 80061; 81001; 82607; 83540; 83550; 83690; 83735; 83880; 84484; 85025; 90471; 90686; 93005; 93308; 96361; 96374; G0480; J1200; J2405; J7030; 99285-25; G0378